=== PATIENT | male | born 1960 | race Caucasian/White ===

== ENCOUNTER 2020-04-19 06:59 | Inpatient (IN) | payer OTHER ==
[2020-04-19] MEDS ORDERED: NITROGLYCERIN OINT 1 INCH/GM PACKET TOPICAL STA (07:16)
--- NOTE | 2020-04-19 07:25 | ED ---
General Adult HPI - General Chief complaint: Chest Pain Stated complaint: Chest Pain, SOB Time Seen by Provider: 04/19/20 07:00 Source: patient, RN notes reviewed, old records reviewed Mode of arrival: wheelchair Limitations: no limitations - History of Present Illness Initial comments: This is a 59-year-old male who presents emergency Department with a past medical history significant for smoking. Patient states he doesn't have a doctor so he hasn't been diagnosed with diabetes hypertension high cholesterol. Patient denies any family history and knowledge because he was adopted. Patient states on Sunday and Sunday had quite a bit of heaviness in his chest. Patient states he had a couple episodes of sweating and some shortness of breath. Patient states Sunday took an aspirin seemed to improve everything however he woke up this morning very short of breath and continue to have some chest pain. Patient denies any fever chills or cough. Patient denies any palpitations. Patient denies any long trips or travel. Patient denies any calf tenderness or leg swelling. Patient denies lightheadedness or dizziness. Patient denies any abdominal pain patient denies nausea vomiting diarrhea. - Related Data Home Medications Medication Instructions Recorded Confirmed Aspirin 325 mg PO ONCE PRN 04/19/20 04/19/20 Allergies Allergy/AdvReac Type Severity Reaction Status Date / Time No Known Allergies Allergy Verified 04/19/20 08:03 Review of Systems ROS Statement: Those systems with pertinent positive or pertinent negative responses have been documented in the HPI. ROS Other: All systems not noted in ROS Statement are negative. Past Medical History Past Medical History: No Reported History History of Any Multi-Drug Resistant Organisms: None Reported Past Surgical History: No Surgical Hx Reported Past Psychological History: No Psychological Hx Reported Smoking Status: Current every day smoker Past Alcohol Use History: Occasional Past Drug Use History: Marijuana General Exam - General Exam Comments Initial Comments: GENERAL: Patient is well-developed and well-nourished. Patient is nontoxic and well- hydrated and is in mild distress. ENT: Neck is soft and supple. No significant lymphadenopathy is noted. Oropharynx is clear. Moist mucous membranes. Neck has full range of motion without eliciting any pain. EYES: The sclera were anicteric and conjunctiva were pink and moist. Extraocular movements were intact and pupils were equal round and reactive to light. Eyelids were unremarkable. PULMONARY: Unlabored respirations. Good breath sounds bilaterally. No audible rales rhonchi or wheezing was noted. CARDIOVASCULAR: There is a regular rate and rhythm without any murmurs gallops or rubs. ABDOMEN: Soft and nontender with normal bowel sounds. SKIN: Skin is clear with no lesions or rashes and otherwise unremarkable. NEUROLOGIC: Patient is alert and oriented x3. Cranial nerves II through XII are grossly intact. Motor and sensory are also intact. Normal speech, volume and content. Symmetrical smile. MUSCULOSKELETAL: Normal extremities with adequate strength and full range of motion. No lower extremity swelling or edema. No calf tenderness. LYMPHATICS: No significant lymphadenopathy is noted PSYCHIATRIC: Normal psychiatric evaluation. Limitations: no limitations Course Vital Signs 04/19/20 04/19/20 04/19/20 07:02 07:04 07:41 Temperature 97.6 F Pulse Rate 121 H 101 H Pulse Rate [ 101 H [employer] Water ] Respiratory 22 20 Rate Blood Pressure 125/70 117/79 O2 Sat by Pulse 95 95 Oximetry 04/19/20 04/19/20 04/19/20 08:02 08:49 09:00 Temperature Pulse Rate 98 103 H 96 Pulse Rate [ [employer] ] Respiratory 20 20 18 Rate Blood Pressure 119/74 119/78 111/74 O2 Sat by Pulse 95 94 L 94 L Oximetry 04/19/20 09:55 Temperature Pulse Rate 95 Pulse Rate [ [employer] ] Respiratory 18 Rate Blood Pressure O2 Sat by Pulse 93 L Oximetry Medical Decision Making - Medical Decision Making EKG shows sinus tachycardia at 119 bpm VA interval 222 QRS is 82 QT interval 328 QTC is 461. Patient has Q waves in leads 3 and aVF. Patient continued to have pain even after Nitropaste so EKG was repeated and it showed a normal sinus rhythm at 97 bpm VA interval 132 QRS is 78 QT interval 346 QTC is 439. Patient's EKG shows Q waves in leads 3 and aVF as well is very subtle ST segment elevation in 3 and aVF. Chest x-ray shows no acute abnormality. CT of the chest showed no PE. Troponin was elevated this along with the patient's symptoms and minimal eleva tion in the inferior leads as well as Q waves in the inferior leads leading me to believe the patient had an MT. I spoke with Dr. Ventura he agreed to come down and see the patient emergency department. I started the patient on heparin and nitro drip. I spoke with some physicians and they agreed to admit the patient admitted the patient wrote admitting orders. - Lab Data Result diagrams: 04/19/20 07:35 04/19/20 07:35 Lab Results 04/19/20 04/19/20 04/19/20 Range/Units 07:35 07:35 07:35 WBC 15.3 H (3.8-10.6) k/uL RBC 5.04 (4.30-5.90) m/uL Hgb 15.8 (13.0-17.5) gm/dL Hct 49.1 (39.0-53.0) % MCV 97.3 (80.0-100.0) fL MCH 31.3 (25.0-35.0) pg MCHC 32.1 (31.0-37.0) g/dL RDW 13.7 (11.5-15.5) % Plt Count 233 (150-450) k/uL Neutrophils % 75 % Lymphocytes % 15 % Monocytes % 7 % Eosinophils % 2 % Basophils % 1 % Neutrophils # 11.4 H (1.3-7.7) k/uL Lymphocytes # 2.2 (1.0-4.8) k/uL Monocytes # 1.1 H (0-1.0) k/uL Eosinophils # 0.2 (0-0.7) k/uL Basophils # 0.1 (0-0.2) k/uL PT 9.6 (9.0-12.0) sec INR 0.9 (<1.2) APTT 22.3 (22.0-30.0) sec D-Dimer 1.04 H (<0.60) mg/L FEU Sodium 135 L (137-145) mmol/L Potassium 4.2 (3.5-5.1) mmol/L Chloride 103 (98-107) mmol/L Carbon Dioxide 23 (22-30) mmol/L Anion Gap 9 mmol/L BUN 22 H (9-20) mg/dL Creatinine 0.84 (0.66-1.25) mg/dL Est GFR (CKD-EPI)AfAm >90 (>60 ml/min/1.73 sqM) Est GFR (CKD-EPI)NonAf >90 (>60 ml/min/1.73 sqM) Glucose 186 H (74-99) mg/dL Calcium 8.8 (8.4-10.2) mg/dL Magnesium 2.0 (1.6-2.3) mg/dL Total Bilirubin 1.2 (0.2-1.3) mg/dL AST 177 H (17-59) U/L ALT 77 H (4-49) U/L Alkaline Phosphatase 86 (38-126) U/L Troponin I (0.000-0.034) ng/mL NT-Pro-B Natriuret Pep pg/mL Total Protein 7.3 (6.3-8.2) g/dL Albumin 4.2 (3.5-5.0) g/dL 04/19/20 04/19/20 Range/Units 07:35 07:35 WBC (3.8-10.6) k/uL RBC (4.30-5.90) m/uL Hgb (13.0-17.5) gm/dL Hct (39.0-53.0) % MCV (80.0-100.0) fL MCH (25.0-35.0) pg MCHC (31.0-37.0) g/dL RDW (11.5-15.5) % Plt Count (150-450) k/uL Neutrophils % % Lymphocytes % % Monocytes % % Eosinophils % % Basophils % % Neutrophils # (1.3-7.7) k/uL Lymphocytes # (1.0-4.8) k/uL Monocytes # (0-1.0) k/uL Eosinophils # (0-0.7) k/uL Basophils # (0-0.2) k/uL PT (9.0-12.0) sec INR (<1.2) APTT (22.0-30.0) sec D-Dimer (<0.60) mg/L FEU Sodium (137-145) mmol/L Potassium (3.5-5.1) mmol/L Chloride (98-107) mmol/L Carbon Dioxide (22-30) mmol/L Anion Gap mmol/L BUN (9-20) mg/dL Creatinine (0.66-1.25) mg/dL Est GFR (CKD-EPI)AfAm (>60 ml/min/1.73 sqM) Est GFR (CKD-EPI)NonAf (>60 ml/min/1.73 sqM) Glucose (74-99) mg/dL Calcium (8.4-10.2) mg/dL Magnesium (1.6-2.3) mg/dL Total Bilirubin (0.2-1.3) mg/dL AST (17-59) U/L ALT (4-49) U/L Alkaline Phosphatase (38-126) U/L Troponin I 19.200 H* (0.000-0.034) ng/mL NT-Pro-B Natriuret Pep 3270 pg/mL Total Protein (6.3-8.2) g/dL Albumin (3.5-5.0) g/dL Critical Care Time Critical Care Time: Yes Total Critical Care Time: 35 Disposition Clinical Impression: Myocardial infarction Disposition: ADMITTED IP TO THIS HOSP Referrals: None,Stated [Primary Care Provider] - 1-2 days Time of Disposition: 09:22
[2020-04-19 07:54] LABS: Basophils # (A) 0.1 k/uL (0-0.2); Basophils % (A) 1 %; Eosinophils # (A) 0.2 k/uL (0-0.7); Eosinophils % (A) 2 %; HCT 49.1 % (39.0-53.0); HGB 15.8 gm/dL (13.0-17.5); Lymphocytes # (A) 2.2 k/uL (1.0-4.8); Lymphocytes % (A) 15 %; MCH 31.3 pg (25.0-35.0); MCHC 32.1 g/dL (31.0-37.0); MCV 97.3 fL (80.0-100.0); Mean Platelet Volume 7.7; Monocytes # (A) 1.1 k/uL (0-1.0); Monocytes % (A) 7 %; Neutrophils # (A) 11.4 k/uL (1.3-7.7); Neutrophils % (A) 75 %; Platelet Count 233 k/uL (150-450); RBC 5.04 m/uL (4.30-5.90); RDW 13.7 % (11.5-15.5); WBC 15.3 k/uL (3.8-10.6)
[2020-04-19 08:08] LABS: INR 0.9 (<1.2); Partial Thromboplastin Time 22.3 sec (22.0-30.0); Prothrombin Time 9.6 sec (9.0-12.0)
[2020-04-19 08:18] LABS: ALT 77 U/L (4-49); AST 177 U/L (17-59); African American GFR (CKD) >90 (>60 ml/min/1.73 sqM); Albumin 4.2 g/dL (3.5-5.0); Alkaline Phosphatase 86 U/L (38-126); Anion Gap 9 mmol/L; Blood Urea Nitrogen 22 mg/dL (9-20); Calcium 8.8 mg/dL (8.4-10.2); Carbon Dioxide 23 mmol/L (22-30); Chloride 103 mmol/L (98-107); Glucose 186 mg/dL (74-99); Non-African American GFR(CKD) >90 (>60 ml/min/1.73 sqM); Potassium 4.2 mmol/L (3.5-5.1); Sodium 135 mmol/L (137-145); Total Bilirubin 1.2 mg/dL (0.2-1.3); Total Protein 7.3 g/dL (6.3-8.2)
--- NOTE | 2020-04-19 08:18 | XR ---
EXAMINATION TYPE: XR chest 2V DATE OF EXAM: 04/19/2020 COMPARISON: NONE HISTORY: Shortness of breath TECHNIQUE: Frontal and lateral views of the chest are obtained. FINDINGS: Scattered senescent parenchymal changes noted. Hyperinflation compatible with COPD. No evidence for infiltrate. Curvilinear parenchymal scarring or atelectasis left lateral lung base. Heart size is stable. Mediastinal structures are stable and grossly unremarkable. No evidence for hilar prominence. Degenerative changes dorsal spine. IMPRESSION: 1. No evidence for acute pulmonary disease.
[2020-04-19 08:20] LABS: D-Dimer 1.04 mg/L FEU (<0.60)
[2020-04-19] MEDS ORDERED: NITROGLYCERIN SL TABS 0.4 MG TAB SUBLINGUAL STA (08:45)
--- NOTE | 2020-04-19 08:55 | CT ---
EXAMINATION TYPE: CT chest angio for PE DATE OF EXAM: 04/19/2020 COMPARISON: HISTORY: Elevated d dimer CT DLP: 521.2 mGycm Automated exposure control for dose reduction was used. CONTRAST: CT Chest for pulmonary embolism performed with with IV Contrast, patient injected with 100 mL of Isov ue 370. FINDINGS: LUNGS: The lungs are remarkable for some dependent atelectatic changes, there is no concerning parenc hymal mass or nodule identified. There are scattered emphysematous changes. Some basilar scarring or atelectatic change present within the lingula is noted There is no pleural effusion or pneumothorax seen. The tracheobronchial tree is patent. MEDIASTINUM: There is satisfactory enhancement of the pulmonary artery and its branches, there is no CT evidence for pulmonary embolism. There are no greater than 1 cm hilar or mediastinal lymph nodes. Minimal pericardial effusion is seen. AORTA: No additional significant abnormality is seen. OTHER: Low dense focus present within the left lobe of the liver measures 2.2 cm and likely represen ts cyst IMPRESSION: No evident pulmonary embolism.
[2020-04-19] MEDS ORDERED: HEPARIN SODIUM,PORCINE 5,000 UNIT/ML 1 ML VIAL IV ONE (08:59)
[2020-04-19] MEDS ORDERED: HEPARIN SOD,PORK IN 0.45% NACL 25,000 UNIT in 0.45% NACL 1 250ML.BAG IV SCH (09:00)
[2020-04-19] MEDS ORDERED: NITROGLYCERIN-D5W PMX 50 MG in DEXTROSE/WATER 1 250ML.BAG IV ONE (09:02)
[2020-04-19] MEDS ORDERED: SODIUM CHLORIDE 0.9% 500 ML 500 ML IV STA (09:03)
[2020-04-19] MEDS ORDERED: HYDROmorphone 0.5 MG/0.5 ML SYRINGE IVP STA (09:32)
[2020-04-19] MEDS ORDERED: FUROSEMIDE 10 MG/ML 2 ML VIAL IV STA (09:33)
--- NOTE | 2020-04-19 09:41 | P.CRDCN ---
History of Present Illness Consult date: 04/19/20 History of present illness: This is a 59-year-old gentleman with a no Sigmund past medical history who has been having and burning and heavy chest discomfort since Sunday. Because of the pain was heavy as if an elephant was sitting on his chest and was continuous. Patient came around 7:00 this morning to the ER. He claims that he is having difficulty breathing and seemed to have some orthopnea and also continues to have some tests chest discomfort. It seemed to have some pleuritic component. It could be related to possible pericarditis. His EKG however shows evidence of Q waves in inferior leads with ST T changes suggestive of subacute inferior wall RI. His troponin is 19. Patient is treated with IV nitroglycerin, Dilaudid, heparin and also IV Lasix. Clinically his lungs appeared to be clear. Chest x- ray did not reveal any evidence of CHF. Patient is advised to have a cardiac catheterization for definitive diagnosis. Patient is going to have ech ocardiogram. Further recommendations will depend upon the clinical course. Prognosis is guarded Review of Systems As per the chart Past Medical History Past Medical History: No Reported History History of Any Multi-Drug Resistant Organisms: None Reported Past Surgical History: No Surgical Hx Reported Past Psychological History: No Psychological Hx Reported Smoking Status: Current every day smoker Past Alcohol Use History: Occasional Past Drug Use History: Marijuana Medications and Allergies Home Medications Medication Instructions Recorded Confirmed Type Aspirin 325 mg PO ONCE PRN 04/19/20 04/19/20 History Allergies Allergy/AdvReac Type Severity Reaction Status Date / Time No Known Allergies Allergy Verified 04/19/20 08:03 Physical Exam Vitals: Vital Signs Temp Pulse Pulse Resp BP Pulse Ox 04/19/20 08:49 103 H 20 119/78 94 L 04/19/20 08:02 98 20 119/74 95 04/19/20 07:41 101 H 04/19/20 07:04 101 H 20 117/79 95 04/19/20 07:02 97.6 F 121 H 22 125/70 95 Intake and Output 04/18/20 04/19/20 04/19/20 22:59 06:59 14:59 Other: Weight 106.594 kg GENERAL EXAM: Patient is alert and oriented and doesn't appear to be in any acute distress HEENT: Normocephalic. Normal reaction of pupils, equal size, normal range of extraocular motion. No erythema or exudates in the throat. NECK: No masses, no nuchal rigidity. CHEST: No chest wall deformity. LUNGS: Equal air entry with no crackles or wheeze. HEART: S1 and S2 normal with no audible mumurs or gallops. Regular rhythm, femorals equal on both sides.. ABDOMEN: No hepatosplenomegaly, normal bowel sounds, no guarding or rigidity. SKIN: No rashes CENTRAL NERVOUS SYSTEM: No focal deficits. EXTREMITIES: No cyanosis, clubbing or edema. Results 04/19/20 07:35 04/19/20 07:35 Cardiac Enzymes 04/19/20 04/19/20 Range/Units 07:35 07:35 AST 177 H (17-59) U/L Troponin I 19.200 H* (0.000-0.034) ng/mL Coagulation 04/19/20 Range/Units 07:35 PT 9.6 (9.0-12.0) sec APTT 22.3 (22.0-30.0) sec CBC 04/19/20 Range/Units 07:35 WBC 15.3 H (3.8-10.6) k/uL RBC 5.04 (4.30-5.90) m/uL Hgb 15.8 (13.0-17.5) gm/dL Hct 49.1 (39.0-53.0) % Plt Count 233 (150-450) k/uL Comprehensive Metabolic Panel 04/19/20 Range/Units 07:35 Sodium 135 L (137-145) mmol/L Potassium 4.2 (3.5-5.1) mmol/L Chloride 103 (98-107) mmol/L Carbon Dioxide 23 (22-30) mmol/L BUN 22 H (9-20) mg/dL Creatinine 0.84 (0.66-1.25) mg/dL Glucose 186 H (74-99) mg/dL Calcium 8.8 (8.4-10.2) mg/dL AST 177 H (17-59) U/L ALT 77 H (4-49) U/L Alkaline Phosphatase 86 (38-126) U/L Total Protein 7.3 (6.3-8.2) g/dL Albumin 4.2 (3.5-5.0) g/dL Current Medications Generic Name Dose Route Start Last Admin Trade Name Freq PRN Reason Stop Dose Admin Heparin Sodium/Sodium Chloride 250 mls @ 10 mls/hr 04/19/20 09:00 04/19/20 09:23 25,000 unit/ Sodium Chloride IV 9.381 units/kg/hr .Q24H LIZETH 10 mls/hr Administration Protocol 9.381 UNITS/KG/HR Nitroglycerin/Dextrose 50 mg/ 250 mls @ 1.5 mls/hr 04/19/20 09:02 04/19/20 09:31 IV Solution IV 04/20/20 09:01 5 mcg/min .Q24H ONE 1.5 mls/hr Administration Protocol 5 MCG/MIN Intake and Output 04/18/20 04/19/20 04/19/20 22:59 06:59 14:59 Other: Weight 106.594 kg Patient Weight 04/20/20 06:59 Weight 106.594 kg 04/19/20 07:35 04/19/20 07:35 EKG Interpretations (text) Sinus rhythm with evidence of subacute inferior wall RI Assessment and Plan (1) Myocardial infarction, inferior wall Current Visit: Yes Status: Acute Code(s): I21.19 - STEMI INVOLVING OTH CORONARY ARTERY OF INFERIOR WALL SNOMED Code(s): 33758169 (2) Pericarditis Current Visit: Yes Status: Acute Code(s): I31.9 - DISEASE OF PERICARDIUM, UNSPECIFIED SNOMED Code(s): 2958944 Plan: Patient had an RI probably started on Sunday. Still having some chest pain, Some of it is pleuritic in nature, suggestive of possible pericarditis. We will get an echocardiogram. Continue with beta blockers, nitrates, lipid-lowering agents, aspirin and heparin. Further recommendations depend upon the findings on the cath
[2020-04-19] MEDS ORDERED: ATORVASTATIN 80 MG TAB PO STA (09:44)
[2020-04-19] MEDS ORDERED: ALPRAZolam 0.25 MG TAB PO PRN (09:44)
[2020-04-19] MEDS ORDERED: ASPIRIN 325 MG TAB PO STA (09:44)
[2020-04-19] MEDS ORDERED: NITROGLYCERIN SL TABS 0.4 MG TAB SUBLINGUAL PRN (09:44)
[2020-04-19] MEDS ORDERED: ALPRAZolam 0.5 MG TAB PO PRN (09:44)
[2020-04-19] MEDS ORDERED: IV FLUID CONTINUATION 400 ML IV ONE (10:35)
[2020-04-19] MEDS ORDERED: IV FLUID CONTINUATION 1,000 ML IV ONE (10:36)
[2020-04-19] MEDS ORDERED: fentaNYL (PF) 50 MCG/ML 2 ML AMP IVP ONE (10:41)
[2020-04-19] MEDS ORDERED: MIDAZOLAM 2 MG/2 ML VIAL IVP ONE (10:41)
[2020-04-19] MEDS ORDERED: LIDOCAINE 1% INJ 10MG/ML (20 ML MDV) SQ ONE (10:44)
[2020-04-19] MEDS ORDERED: VERAPAMIL SYRINGE (5 MG/10 ML) INTRAARTER ONE (10:46)
--- NOTE | 2020-04-19 11:08 | P.CARDCATH ---
Date of Procedure: 04/19/20 Preoperative Diagnosis: Subacute inferior wall OK with ongoing chest pains Postoperative Diagnosis: Total occlusion of the proximal RCA Procedure(s) Performed: Left heart catheterization without left ventriculography Description of Procedure: HISTORY: This is a 59-year-old gentleman with history of smoking and no other past medical history, came to the emergency room with complaints of chest pain since Sunday, that is 3 days prior to admission. Patient was still having chest pains. His EKG showed evidence of subacute inferior wall OK with resolving ST elevations. Echocardiogram showed almost normal LV function. His troponin value was 19. Patient was advised to have a are catheterization for definite diagnosis. CONSENT:I have discussed the risks, benefits and alternative therapies for the above-mentioned procedure and for both sedation/analgesia as well as necessary blood product administration, if indicated, as they pertain to this patient. The patient has indicated understanding and acceptance of the risks and procedures discussed. PROCEDURE: Patient was brought to the lab in a fasting state. Patient was given some IV sedation. The right wrist is infiltrated with lidocaine and right radial artery was entered using Seldinger technique. A 6-Yoruba catheter was left in place and selective coronary arteriography was performed. Patient tolerated the procedure well. Patient is found to have total occlusion of the RCA. Waiting to have stent placement by Dr. JANEL Scherer Conscious Sedation: Versed 1mg Fentanyl 25 g Duration 17minutes HEMODYNAMICS: The aortic pressure is 138/90. The left ventricular end-diastolic pressure is not measured SELECTIVE CORONARY ARTERIOGRAPHY: LEFT MAIN: Normal length free of occlusive disease THE LEFT ANTERIOR DESCENDING CORONARY ARTERY:. Good caliber vessel. Free of any significant occlusive disease THE LEFT CIRCUMFLEX AND IS CORONARY ARTERY:. Good caliber vessel. Free of occlusive disease THE RIGHT CORONARY ARTERY: To be dominant vessel totally occluded in the proximal portion. There are collaterals from the left coronary to the distal RCA LEFT VENTRICULOGRAPHY: Not performed FINAL IMPRESSION:. Total occlusion of the proximal RCA PLAN: Stent placement of the RCA PROGNOSIS: Guarded
--- NOTE | 2020-04-19 11:08 | ECHOF ---
Referral Reason:Chest pain and cardiomyopathy MEASUREMENTS -------- HEIGHT: 190.5 cm WEIGHT: 104.3 kg BP: 90/57 RVIDd: 3.6 cm (< 3.3) IVSd: 1.6 cm (0.6 - 1.1) LVIDd: 4.5 cm (3.9 - 5.3) LVPWd: 1.6 cm (0.6 - 1.1) IVSs: 2.0 cm LVIDs: 3.2 cm LVPWs: 2.1 cm LA Diam: 3.7 cm (2.7 - 3.8) Ao Diam: 3.5 cm (2.0 - 3.7) MV EXCURSION: 15.618 mm (> 18.000) MV EF SLOPE: 32 mm/s (70 - 150) EPSS: 0.9 cm MV E Scott: 0.58 m/s MV DecT: 190 ms MV A Scott: 0.80 m/s MV E/A Ratio: 0.72 FINDINGS -------- Sinus rhythm. This was a technically difficult study with suboptimal views. The left ventricular size is normal. There is moderate concentric left ventricular hypertrophy. O verall left ventricular systolic function is normal with, an EF between 55 - 60 %. The right ventricle is mildly enlarged. The left atrial size is normal. The right atrial size is normal. Interatrial and interventricular septum intact. The aortic valve is trileaflet, and appears structurally normal. No aortic stenosis or regurgitation. The mitral valve leaflets are mildly thickened. There is trace to mild mitral regurgitation. The tricuspid valve appears structurally normal. The pulmonic valve was not well visualized. The aortic root size is normal. IVC Not well visulized. There is no pericardial effusion. CONCLUSIONS -------- 1. There is moderate concentric left ventricular hypertrophy. 2. Overall left ventricular systolic function is normal with, an EF between 55 - 60 %. 3. The right ventricle is mildly enlarged. 4. The left atrial size is normal. 5. The aortic valve is trileaflet, and appears structurally normal. No aortic stenosis or regurgitati on. 6. The mitral valve leaflets are mildly thickened. 7. There is trace to mild mitral regurgitation. 8. The pulmonic valve was not well visualized. 9. There is no pericardial effusion. POULTRY PICKING MACHINE TENDER: Emerita Nguyen RDCS
[2020-04-19] MEDS ORDERED: IOPAMIDOL-370 100ML BTL INJ ONE ×3 (11:38→13:30)
[2020-04-19] MEDS ORDERED: HEPARIN SODIUM 1,000 UN/ML (10ML VL) IV ONE (11:56)
[2020-04-19] MEDS ORDERED: NOREPINEPHRINE 4 MG in SODIUM CHLORIDE 0.9% 250 ML IV ONE (12:01)
[2020-04-19] MEDS ORDERED: HYDROmorphone 1 MG/ML 1 ML SYRINGE IVP ONE ×2 (12:04→12:07)
[2020-04-19] MEDS ORDERED: NITROGLYCERIN SL TABS 0.4 MG TAB SUBLINGUAL ONE (12:08)
[2020-04-19] MEDS ORDERED: NITROGLYCERIN 1000MCG/10ML SYRINGE INTRACORON ONE ×3 (12:45→13:10)
[2020-04-19] MEDS: HEPARIN SODIUM 1,000 UN/ML (10ML VL) IV ONE ×2 (13:03→13:21)
[2020-04-19] MEDS ORDERED: SODIUM CHLORIDE 0.9% 500 ML 500 ML IV ONE (13:09)
[2020-04-19] MEDS ORDERED: ATROPINE SULFATE 0.1 MG/ML 10ML SYRINGE IV PRN (13:26)
[2020-04-19] MEDS ORDERED: ZOLPIDEM 5 MG TAB PO PRN (13:26)
[2020-04-19] MEDS ORDERED: RX INFO: IV CONTRAST WAS GIVEN 1 EACH MISC MISCELLANE PRN (13:26)
[2020-04-19] MEDS ORDERED: MAG HYDROX/AL HYDROX/SIMETH 30 ML CUP PO PRN (13:26)
[2020-04-19] MEDS ORDERED: CLOPIDOGREL 75 MG TAB PO ONE (13:35)
[2020-04-19 14:17] LABS: Glucose,Whole Blood 168 mg/dL (75-99)
[2020-04-19] MEDS ORDERED: HYDROcodone/APAP 5-325MG 1 EACH TAB PO PRN (14:22)
--- NOTE | 2020-04-19 15:05 | P.HPIM ---
History of Present Illness H&P Date: 04/19/20 Chief Complaint: Chest pain This is a 59-year-old male with no significant past medical history who presented to the emergency room with a chief complaint of chest pain. Patient said that his pain started a few days ago and is being getting progressively worse. He described his pain as 10 out of 10 in severity and IV dye sensation in the middle of his chest and toward the left side. This was associated with difficulty breathing. Patient denies diaphoresis or dizziness. Patient was evaluated in the ER and was found to have evidence of a non-ST elevation [place] with nonspecific ST segment changes. Patient was seen and evaluated by cardiology and was taken to the heart cath status post left heart catheterization and stent placement to RCA. He still complaining of chest pain in the middle of his chest that he report is not any better compared to before. He received 1 dose of IV dye noted earlier that his blood pressure was borderline low. Review of Systems Review of system: 14 points review of systems were obtained and were negative except to what were mentioned in the HPI. Past Medical History Past Medical History: No Reported History History of Any Multi-Drug Resistant Organisms: None Reported Past Surgical History: No Surgical Hx Reported Past Anesthesia/Blood Transfusion Reactions: No Reported Reaction Past Psychological History: No Psychological Hx Reported Smoking Status: Current every day smoker Past Alcohol Use History: Occasional Past Drug Use History: Marijuana - Past Family History Mother History Unknown: Yes Father History Unknown: Yes Medications and Allergies Home Medications Medication Instructions Recorded Confirmed Type Aspirin 325 mg PO ONCE PRN 04/19/20 04/19/20 History Allergies Allergy/AdvReac Type Severity Reaction Status Date / Time No Known Allergies Allergy Verified 04/19/20 08:03 Physical Exam Vitals: Vital Signs Temp Pulse Pulse Resp BP BP Pulse Ox 04/19/20 13:54 72 18 117/66 96 04/19/20 13:42 80 18 114/60 94 L 04/19/20 10:08 93 18 119/82 94 L 04/19/20 10:05 96 18 119/82 93 L 04/19/20 09:55 95 18 93 L 04/19/20 09:00 96 18 111/74 94 L 04/19/20 08:49 103 H 20 119/78 94 L 04/19/20 08:02 98 20 119/74 95 04/19/20 07:41 101 H 04/19/20 07:04 101 H 20 117/79 95 04/19/20 07:02 97.6 F 121 H 22 125/70 95 Intake and Output 04/18/20 04/19/20 04/19/20 22:59 06:59 14:59 Intake Total 410.5 Output Total 625 Balance -214.5 Intake: IV 410.5 Output: Urine 625 Other: Weight 106.594 kg General: The patient is awake and alert, in no distress Eye: there is normal conjunctiva bilaterally. Neck: The neck is supple, there is no JVD. Cardiovascular: Normal S1-S2, no S3-S4, no murmurs. Respiratory: Lungs clear to auscultation bilaterally Gastrointestinal: Abdomen is soft, nontender Musculoskeletal: There is no pedal edema. Neurological:. Speech is normal. Skin: Skin is warm and dry Results CBC & Chem 7: 04/19/20 07:35 04/19/20 07:35 Labs: Abnormal Lab Results - Last 24 Hours (Table) 04/19/20 04/19/20 04/19/20 Range/Units 07:35 07:35 07:35 WBC 15.3 H (3.8-10.6) k/uL Neutrophils # 11.4 H (1.3-7.7) k/uL Monocytes # 1.1 H (0-1.0) k/uL D-Dimer 1.04 H (<0.60) mg/L FEU Sodium 135 L (137-145) mmol/L BUN 22 H (9-20) mg/dL Glucose 186 H (74-99) mg/dL POC Glucose (mg/dL) (75-99) mg/dL AST 177 H (17-59) U/L ALT 77 H (4-49) U/L Troponin I (0.000-0.034) ng/mL 04/19/20 04/19/20 Range/Units 07:35 14:15 WBC (3.8-10.6) k/uL Neutrophils # (1.3-7.7) k/uL Monocytes # (0-1.0) k/uL D-Dimer (<0.60) mg/L FEU Sodium (137-145) mmol/L BUN (9-20) mg/dL Glucose (74-99) mg/dL POC Glucose (mg/dL) 168 H (75-99) mg/dL AST (17-59) U/L ALT (4-49) U/L Troponin I 19.200 H* (0.000-0.034) ng/mL Thrombosis Risk Factor Assmnt - Choose All That Apply Each Factor Represents 1 point: Acute [place], Age 41-60 years, Medical pt on bed rest Other Risk Factors: No Other congenital or acquired thrombophilia - If yes, enter type in comment: No Thrombosis Risk Factor Assessment Total Risk Factor Score: 3 Thrombosis Risk Factor Assessment Level: Moderate Risk Assessment and Plan Assessment: 1. Non-ST elevation [place], status post left heart catheterization total occlusion of proximal RCA. Status post stent placement. Continue medical management per cardiology. Echocardiogram showed preserved ejection fraction 55% 2. Tobacco abuse: Counseled extensively to quit. Patient declined nicotine patch at this time. 3. Hyperlipidemia: Awaiting fasting lipid profile in the morning 4. DVT prophylaxis with subcu heparin
[2020-04-19] MEDS: MORPHINE SULFATE 2 MG/ML SYRINGE IVP PRN ×2 (15:31→23:24)
[2020-04-19] MEDS: METOPROLOL TARTRATE 12.5 MG TAB PO SCH (20:21)
[2020-04-19] MEDS: ASPIRIN 81 MG PO SCH (20:21)
[2020-04-19] MEDS: ATORVASTATIN 80 MG TAB PO SCH (20:21)
[2020-04-19] MEDS: HEPARIN SODIUM,PORCINE 5,000 UNIT/ML 1 ML VIAL SQ SCH (23:24)
--- NOTE | 2020-04-20 01:44 | PTCA ---
PERCUTANEOUSTRANS CORORONARY ANGIOGRAPHY DATE OF SERVICE: 04/19/2020. PROCEDURE: PTCA of a totally occluded proximal RCA immediately after a conus branch. PERFORMED BY: Dr. Ezequiel Scherer. Moderate conscious sedation time was 119 minutes. Patient was administered Versed, Dilaudid. Oxygen saturation, hemodynamics and EKG were monitored closely. CLINICAL INFORMATION: Mr. Joaquin Graf is a gentleman who was seen by Dr. Ventura, admitted to the hospital with chest pain and had a troponin elevation. It appears that this pain started 72 hours ago. There was troponin elevation and there seems to be a subacute myocardial infarction. Cardiac cath revealed that RCA was totally occluded with collaterals for the left system. No significant disease in other vessels. He was advised intervention, but on looking at the angiogram, I felt that this may be a chronic total occlusion with some distal branches having been occluded recently. I discussed this with the patient, explained him the success rate is low and began the procedure. PROCEDURE NOTE: The patient had the radial sheath and I used the same sheath. A standard right Nancy guide catheter of 6-Danish caliber was used to cannulate the right coronary artery. I used a combination initially of a straight SuperCross wire and a run-through wire. I did not make much progress. I switched over to a 45-degree angle SuperCross and a Whisper wire straight with this combination I crossed the total occlusion, advanced it almost to the distal aspect of the RCA before bifurcation. I gave multiple inflations initially with a 2.0 and then a 2.5 and subsequently with a 3.0 vessel. The vessel opened up with a CODY 2 flow which was quite encouraging after multiple inflations. I then deployed a 3.0 caliber 18 mm long Xience stent and after this there seemed to be a significant thrombus burden and the vessel was occluded. ACT was over 300 after giving about 4000 additional units of heparin. Patient already received 4000 in the ER. However, subsequently ACT came down and additional heparin was given. Patient received 600 mg of Plavix. At the end of the procedure, I did not see much antegrade flow and this was therefore unsuccessful procedure, one stent was deployed. Unfortunately, I did not get much antegrade flow. I discussed this with the patient. He was pain free, hemodynamically stable. There was transient hypotension. I performed an echocardiogram on the table and there was no evidence of any pericardial effusion. The patient was sent to the ICU in a stable condition with the understanding that this was unsuccessful PTCA of a chronic total occlusion. There was no family members to explain or discuss the details with. BRITT / ELIZABET: [id number] / MTDCurly
[2020-04-20 05:17] LABS: Basophils # (A) 0.1 k/uL (0-0.2); Basophils % (A) 0 %; Eosinophils # (A) 0.2 k/uL (0-0.7); Eosinophils % (A) 2 %; HCT 42.1 % (39.0-53.0); HGB 13.9 gm/dL (13.0-17.5); Lymphocytes # (A) 1.9 k/uL (1.0-4.8); Lymphocytes % (A) 13 %; MCH 32.3 pg (25.0-35.0); MCHC 32.9 g/dL (31.0-37.0); MCV 98.2 fL (80.0-100.0); Mean Platelet Volume 7.7; Monocytes # (A) 1.1 k/uL (0-1.0); Monocytes % (A) 7 %; Neutrophils # (A) 11.4 k/uL (1.3-7.7); Neutrophils % (A) 77 %; Platelet Count 216 k/uL (150-450); RBC 4.29 m/uL (4.30-5.90); RDW 13.7 % (11.5-15.5); WBC 14.8 k/uL (3.8-10.6)
[2020-04-20 05:24] LABS: ALT 62 U/L (4-49); AST 110 U/L (17-59); African American GFR (CKD) >90 (>60 ml/min/1.73 sqM); Albumin 3.3 g/dL (3.5-5.0); Alkaline Phosphatase 74 U/L (38-126); Anion Gap 6 mmol/L; Blood Urea Nitrogen 18 mg/dL (9-20); Calcium 8.2 mg/dL (8.4-10.2); Carbon Dioxide 23 mmol/L (22-30); Chloride 102 mmol/L (98-107); Cholesterol 189 mg/dL (<200); Glucose 136 mg/dL (74-99); HDL Cholesterol 37 mg/dL (40-60); LDL Cholesterol,Calculated 128 mg/dL (0-99); Non-African American GFR(CKD) >90 (>60 ml/min/1.73 sqM); Sodium 131 mmol/L (137-145); Total Bilirubin 1.7 mg/dL (0.2-1.3); Triglycerides 120 mg/dL (<150)
[2020-04-20] MEDS: CLOPIDOGREL 75 MG TAB PO SCH (08:55)
[2020-04-20] MEDS: METOPROLOL TARTRATE 12.5 MG TAB PO SCH (08:56)
[2020-04-20] MEDS: HEPARIN SODIUM,PORCINE 5,000 UNIT/ML 1 ML VIAL SQ SCH ×2 (08:56→21:47)
[2020-04-20] MEDS ORDERED: ASPIRIN 325 MG TAB PO SCH (09:00)
[2020-04-20 10:31] VITALS: BMI 31.1
--- NOTE | 2020-04-20 13:26 | ECHOF ---
Referral Reason:R/O Pericardial effusion MEASUREMENTS -------- HEIGHT: 182.9 cm WEIGHT: 113.4 kg BP: FINDINGS -------- Sinus rhythm. Echo Done 04/19/20: Limited study to r/o pericardial effusion. There is no pericardial effusion. CONCLUSIONS -------- 1. Sinus rhythm. 2. Echo Done 04/19/20: Limited study to r/o pericardial effusion. 3. There is no pericardial effusion. ELEVATOR ERECTOR: Cecily Brewer RDCS
--- NOTE | 2020-04-20 15:43 | P.PN ---
Subjective Progress Note Date: 04/20/20 This is a 59-year-old gentleman with history of smoking who was admitted to the hospital with subacute inferior wall myocardial infarction. Had a cardiac catheterization and was found to have total occlusion of the proximal RCA with collateral from the left system. Left system is free of occlusive disease. Attempted stent placement was unsuccessful. His troponin remained around 20. Patient is feeling much better. No Sigmund chest pain or shortness of breath. His chest x-ray never showed CHF. His blood pressure is about 100 210 systolic. Heart rate is about 80-90. He is on small dose of beta kenny. I'm going to increase the dose and see if he can tolerate. Lungs appeared to be clear. Heart is regular. Patient is being transferred to telemetry unit. Increase activity as tolerated Objective - Vital Signs Vital signs: Vital Signs Temp 98.4 F 04/20/20 12:00 Pulse 99 04/20/20 15:00 Resp 18 04/20/20 15:00 BP 109/68 04/20/20 15:00 Pulse Ox 95 04/20/20 15:00 Intake & Output 04/19/20 04/20/20 04/20/20 18:59 06:59 18:59 Intake Total 490.5 240 540 Output Total 625 1000 1000 Balance -134.5 -760 -460 Weight 106.594 kg 110.2 kg 110.2 kg Intake: IV 490.5 240 180 0.9 NS 80 240 180 Oral 360 Output: Urine 625 1000 1000 Other: Voiding Method Urinal Urinal - Exam GENERAL EXAM: Patient is alert and oriented and doesn't appear to be in any acute distress HEENT: Normocephalic. Normal reaction of pupils, equal size, normal range of extraocular motion. No erythema or exudates in the throat. NECK: No masses, no nuchal rigidity. CHEST: No chest wall deformity. LUNGS: Equal air entry with no crackles or wheeze. HEART: S1 and S2 normal with no audible mumurs or gallops. Regular rhythm, femorals equal on both sides.. ABDOMEN: No hepatosplenomegaly, normal bowel sounds, no guarding or rigidity. SKIN: No rashes CENTRAL NERVOUS SYSTEM: No focal deficits. EXTREMITIES: No cyanosis, clubbing or edema. - Labs CBC & Chem 7: 04/20/20 04:54 04/20/20 04:54 Labs: Abnormal Lab Results - Last 24 Hours (Table) 04/19/20 04/20/20 04/20/20 Range/Units 17:08 04:54 04:54 WBC 14.8 H (3.8-10.6) k/uL RBC 4.29 L (4.30-5.90) m/uL Neutrophils # 11.4 H (1.3-7.7) k/uL Monocytes # 1.1 H (0-1.0) k/uL Sodium 131 L (137-145) mmol/L Glucose 136 H (74-99) mg/dL Calcium 8.2 L (8.4-10.2) mg/dL Total Bilirubin 1.7 H (0.2-1.3) mg/dL AST 110 H (17-59) U/L ALT 62 H (4-49) U/L Troponin I 18.500 H* (0.000-0.034) ng/mL Total Protein 6.0 L (6.3-8.2) g/dL Albumin 3.3 L (3.5-5.0) g/dL LDL Cholesterol, Calc 128 H (0-99) mg/dL HDL Cholesterol 37 L (40-60) mg/dL 04/20/20 Range/Units 04:54 WBC (3.8-10.6) k/uL RBC (4.30-5.90) m/uL Neutrophils # (1.3-7.7) k/uL Monocytes # (0-1.0) k/uL Sodium (137-145) mmol/L Glucose (74-99) mg/dL Calcium (8.4-10.2) mg/dL Total Bilirubin (0.2-1.3) mg/dL AST (17-59) U/L ALT (4-49) U/L Troponin I 21.500 H* (0.000-0.034) ng/mL Total Protein (6.3-8.2) g/dL Albumin (3.5-5.0) g/dL LDL Cholesterol, Calc (0-99) mg/dL HDL Cholesterol (40-60) mg/dL Assessment and Plan (1) Myocardial infarction, inferior wall Current Visit: Yes Status: Acute Code(s): I21.19 - STEMI INVOLVING OTH CORONARY ARTERY OF INFERIOR WALL SNOMED Code(s): 39184270 (2) Pericarditis Current Visit: Yes Status: Acute Code(s): I31.9 - DISEASE OF PERICARDIUM, UNSPECIFIED SNOMED Code(s): 3701395 Plan: Status post subacute inferior wall SD. Patient is clinically stable. His troponin remained around 20. We'll increase the dose of the beta kenny. See if he can tolerate. Will get a chest x-ray and BNP levels tomorrow. Further recommendations depends upon the critical course
--- NOTE | 2020-04-20 16:22 | P.PN ---
Subjective Progress Note Date: 04/20/20 Patient is doing fairly well today. He denies any chest pain this morning. No acute events overnight. Objective - Vital Signs Vital signs: Vital Signs Temp 98.4 F 04/20/20 12:00 Pulse 99 04/20/20 15:00 Resp 18 04/20/20 15:00 BP 109/68 04/20/20 15:00 Pulse Ox 95 04/20/20 15:00 Intake & Output 04/19/20 04/20/20 04/20/20 18:59 06:59 18:59 Intake Total 490.5 240 540 Output Total 625 1000 1000 Balance -134.5 -760 -460 Weight 106.594 kg 110.2 kg 110.2 kg Intake: IV 490.5 240 180 0.9 NS 80 240 180 Oral 360 Output: Urine 625 1000 1000 Other: Voiding Method Urinal Urinal - Exam General: The patient is awake and alert, in no distress Eye: there is normal conjunctiva bilaterally. Neck: The neck is supple, there is no JVD. Cardiovascular: Normal S1-S2, no S3-S4, no murmurs. Respiratory: Lungs clear to auscultation bilaterally Gastrointestinal: Abdomen is soft, nontender Musculoskeletal: There is no pedal edema. Neurological:. Speech is normal. Skin: Skin is warm and dry - Labs CBC & Chem 7: 04/20/20 04:54 04/20/20 04:54 Labs: Abnormal Lab Results - Last 24 Hours (Table) 04/19/20 04/20/20 04/20/20 Range/Units 17:08 04:54 04:54 WBC 14.8 H (3.8-10.6) k/uL RBC 4.29 L (4.30-5.90) m/uL Neutrophils # 11.4 H (1.3-7.7) k/uL Monocytes # 1.1 H (0-1.0) k/uL Sodium 131 L (137-145) mmol/L Glucose 136 H (74-99) mg/dL Calcium 8.2 L (8.4-10.2) mg/dL Total Bilirubin 1.7 H (0.2-1.3) mg/dL AST 110 H (17-59) U/L ALT 62 H (4-49) U/L Troponin I 18.500 H* (0.000-0.034) ng/mL Total Protein 6.0 L (6.3-8.2) g/dL Albumin 3.3 L (3.5-5.0) g/dL LDL Cholesterol, Calc 128 H (0-99) mg/dL HDL Cholesterol 37 L (40-60) mg/dL 04/20/20 Range/Units 04:54 WBC (3.8-10.6) k/uL RBC (4.30-5.90) m/uL Neutrophils # (1.3-7.7) k/uL Monocytes # (0-1.0) k/uL Sodium (137-145) mmol/L Glucose (74-99) mg/dL Calcium (8.4-10.2) mg/dL Total Bilirubin (0.2-1.3) mg/dL AST (17-59) U/L ALT (4-49) U/L Troponin I 21.500 H* (0.000-0.034) ng/mL Total Protein (6.3-8.2) g/dL Albumin (3.5-5.0) g/dL LDL Cholesterol, Calc (0-99) mg/dL HDL Cholesterol (40-60) mg/dL Assessment and Plan Assessment: 1. Non-ST elevation ID, status post left heart catheterization total occlusion of proximal RCA. Successful stent placement attempt. Continue medical management per cardiology. Echocardiogram showed preserved ejection fraction 55% 2. Tobacco abuse: Counseled extensively to quit. Patient declined nicotine pat ch at this time. 3. Hyperlipidemia: LDL 128. Started on Lipitor 80 mg at bedtime 4. Mild transaminitis: Exact theology unclear. We will repeat lab work in the morning. If not trending down consider further workup including holding Lipitor and pain acute hepatitis panel 5. DVT prophylaxis with subcu heparin Awaiting further recommendation from cardiology. Possible discharge home tomorrow
[2020-04-20] MEDS: ASPIRIN 81 MG PO SCH (21:47)
[2020-04-20] MEDS: ATORVASTATIN 80 MG TAB PO SCH (21:48)
[2020-04-20] MEDS: METOPROLOL TARTRATE 25 MG TAB PO SCH (21:48)
[2020-04-21 05:05] LABS: Basophils # (A) 0.1 k/uL (0-0.2); Basophils % (A) 1 %; Eosinophils # (A) 0.4 k/uL (0-0.7); Eosinophils % (A) 4 %; HCT 39.2 % (39.0-53.0); HGB 12.5 gm/dL (13.0-17.5); Lymphocytes % (A) 16 %; MCH 31.3 pg (25.0-35.0); MCHC 31.8 g/dL (31.0-37.0); MCV 98.4 fL (80.0-100.0); Mean Platelet Volume 7.7; Monocytes # (A) 1.1 k/uL (0-1.0); Monocytes % (A) 9 %; Neutrophils # (A) 8.4 k/uL (1.3-7.7); Neutrophils % (A) 69 %; Platelet Count 191 k/uL (150-450); RBC 3.98 m/uL (4.30-5.90); RDW 13.7 % (11.5-15.5); WBC 12.2 k/uL (3.8-10.6)
[2020-04-21 05:36] LABS: ALT 83 U/L (4-49); AST 112 U/L (17-59); African American GFR (CKD) >90 (>60 ml/min/1.73 sqM); Alkaline Phosphatase 85 U/L (38-126); Anion Gap 8 mmol/L; Blood Urea Nitrogen 22 mg/dL (9-20); Calcium 8.4 mg/dL (8.4-10.2); Carbon Dioxide 22 mmol/L (22-30); Chloride 103 mmol/L (98-107); Glucose 116 mg/dL (74-99); Non-African American GFR(CKD) >90 (>60 ml/min/1.73 sqM); Sodium 133 mmol/L (137-145); Total Bilirubin 1.2 mg/dL (0.2-1.3); Total Protein 5.7 g/dL (6.3-8.2)
--- NOTE | 2020-04-21 07:29 | XR ---
EXAMINATION TYPE: XR chest 1V DATE OF EXAM: 04/21/2020 COMPARISON: Prior chest x-ray and CT 04/19/2020 HISTORY: Shortness of breath TECHNIQUE: Single frontal view of the chest is obtained. FINDINGS: Probable subsegmental basilar atelectatic changes persist. No evident pneumothorax or pleu ral effusion. Heart is stable. Aorta is dense. There are overlying cardiac leads. IMPRESSION: Probable subsegmental basilar atelectasis. Emphysema.
[2020-04-21] MEDS: METOPROLOL TARTRATE 25 MG TAB PO SCH (09:36)
[2020-04-21] MEDS: HEPARIN SODIUM,PORCINE 5,000 UNIT/ML 1 ML VIAL SQ SCH (09:36)
[2020-04-21] MEDS: CLOPIDOGREL 75 MG TAB PO SCH (09:36)
--- NOTE | 2020-04-21 14:27 | P.PN ---
Subjective Progress Note Date: 04/21/20 This is a 59-year-old gentleman with history of smoking who was admitted to the hospital with subacute inferior wall myocardial infarction. Had a cardiac catheterization and was found to have total occlusion of the proximal RCA with collateral from the left system. Left system is free of occlusive disease. Attempted stent placement was unsuccessful. His troponin remained around 20. Patient is feeling much better. No Sigmund chest pain or shortness of breath. His chest x-ray never showed CHF. His blood pressure is about 100 210 systolic. Heart rate is about 80-90. He is on small dose of beta kenny. I'm going to increase the dose and see if he can tolerate. Lungs appeared to be clear. Heart is regular. Patient is being transferred to telemetry unit. Increase activity as tolerated April 21, 2020: This patient remains stable. Denies any chest pain ,no shortness of breath. Chest x-ray is clear. Lungs are clear. Heart is regular. Heart rate is about 90. Blood pressure is about systolic. Patient's activity will be increased. Possible discharge hoem today.follow-up in the office in one week. Objective - Vital Signs Vital signs: Vital Signs Temp 97.9 F 04/21/20 12:00 Pulse 86 04/21/20 12:00 Resp 20 04/21/20 12:00 BP 103/69 04/21/20 12:00 Pulse Ox 93 L 04/21/20 12:00 Intake & Output 04/20/20 04/21/20 04/21/20 18:59 06:59 18:59 Intake Total 740 250 Output Total 1500 600 400 Balance -760 -600 -150 Weight 110.2 kg 108.6 kg Intake: IV 180 0 0.9 NS 180 0 Oral 560 250 Output: Urine 1500 600 400 Other: Voiding Method Urinal Urinal Urinal - Exam GENERAL EXAM: Patient is alert and oriented and doesn't appear to be in any acute distress HEENT: Normocephalic. Normal reaction of pupils, equal size, normal range of extraocular motion. No erythema or exudates in the throat. NECK: No masses, no nuchal rigidity. CHEST: No chest wall deformity. LUNGS: Equal air entry with no crackles or wheeze. HEART: S1 and S2 normal with no audible mumurs or gallops. Regular rhythm, femorals equal on both sides.. ABDOMEN: No hepatosplenomegaly, normal bowel sounds, no guarding or rigidity. SKIN: No rashes CENTRAL NERVOUS SYSTEM: No focal deficits. EXTREMITIES: No cyanosis, clubbing or edema. - Labs CBC & Chem 7: 04/21/20 04:43 04/21/20 04:43 Labs: Abnormal Lab Results - Last 24 Hours (Table) 04/21/20 04/21/20 Range/Units 04:43 04:43 WBC 12.2 H (3.8-10.6) k/uL RBC 3.98 L (4.30-5.90) m/uL Hgb 12.5 L (13.0-17.5) gm/dL Neutrophils # 8.4 H (1.3-7.7) k/uL Monocytes # 1.1 H (0-1.0) k/uL Sodium 133 L (137-145) mmol/L BUN 22 H (9-20) mg/dL Glucose 116 H (74-99) mg/dL AST 112 H (17-59) U/L ALT 83 H (4-49) U/L Total Protein 5.7 L (6.3-8.2) g/dL Albumin 3.0 L (3.5-5.0) g/dL Assessment and Plan (1) Myocardial infarction, inferior wall Current Visit: Yes Status: Acute Code(s): I21.19 - STEMI INVOLVING OTH CORONARY ARTERY OF INFERIOR WALL SNOMED Code(s): 70737965 (2) Pericarditis Current Visit: Yes Status: Acute Code(s): I31.9 - DISEASE OF PERICARDIUM, UNSPECIFIED SNOMED Code(s): 5615873 Plan: patient is clinically , stable. Continue current medical therapy. Possible discharge home today. Follow-up in the office in about one week
--- NOTE | 2020-04-21 14:52 | P.DS ---
Providers Date of admission: 04/19/20 10:04 Expected date of discharge: 04/21/20 Attending physician: Vahe Tomlin MD Consults: 04/19/20 10:04 Consult Physician Urgent Consulting Provider: Weston Ventura Consult Reason/Comments: [place] Do you want consulting provider notified?: Already Contacted 04/19/20 13:27 Consult Physician Routine Consulting Provider: [facility] Consult Reason/Comments: Post Interventional patient Do you want consulting provider notified?: Already Contacted Primary care physician: Stated None Hospital Course: Discharge Diagnosis: NSTEMI, sub acute inferior wall Tobacco abuse dyslipidemia Tranaminitis, improving Hospital Course: Patient is a 59-year-old male with no known past medical history who presented with a chief complaint of chest pain. In the ER he underwent an extensive evaluation. On arrival he was tachycardic with a heart rate of 121 his vital signs were otherwise within normal limits. Initial laboratory analysis 7 white blood cell count of 15.3, d-dimer mildly elevated at 1.04, sodium 135, AST 177, ALT 77, and a troponin of 19.2. Initial EKG showed nonspecific ST segment changes. CTA of the chest showed no evidence of pulmonary embolism. He was seen by cardiology. He underwent an echocardiogram which showed a preserved ejection fraction of 55%. He was taken for cardiac catheterization on 04/19 which showed complete occlusion of the right coronary artery. Stenting was attempted but was unsuccessful. It appeared that patient had collaterals from the left, and the left system was disease free. He was monitored and continued to do well. He had no chest pain throughout his hospital stay. He was initiated on Plavix, Lipitor, aspirin, and metoprolol. Of note patient does not have insurance. [facility] He will also have 90 days worth of medication filled at the pharmacy. He'll follow up with cardiology in 1 week. Patient had been up and ambulating in the unit without recurrent chest pain or shortness of breath. He has been counseled on the importance of tobacco cessation. Patient seen and examined at bedside. No chest pain, shortness breath, nausea, vomiting, or diaphoresis Vital signs reviewed and stable. General: non toxic, no distress, appears at stated age Derm: warm, dry Head: atraumatic, normocephalic, symmetric Eyes: EOMI, no lid lag, anicteric sclera Mouth: no lip lesion, mucus membranes moist Cardiovascular: S1S2 reg, no murmur, positive posterior tibial pulse bilateral, Lungs: CTA bilateral, no rhonchi, no rales , no accessory muscle use Abdominal: soft, nontender to palpation, no guarding, no appreciable organomegaly Ext: no gross muscle atrophy, no edema, no contractures Neuro: CN II-XI grossly intact, no focal neuro deficits Psych: Alert, oriented, appropriate affect A total of 35 minutes of time were spent preparing this complex discharge summary . Patient Condition at Discharge: Stable Plan - Discharge Summary Discharge Rx Participant: Yes New Discharge Prescriptions: New RX: Aspirin 81 mg PO HS #30 tab RX: Atorvastatin [Lipitor] 80 mg PO HS #30 tab RX: Metoprolol Tartrate [Lopressor] 25 mg PO BID #60 tab RX: Clopidogrel [Plavix] 75 mg PO DAILY #30 tab Discontinued RX: Aspirin 325 mg PO ONCE PRN PRN Reason: Chest Pain Discharge Medication List RX: Aspirin 81 mg PO HS #30 tab 04/21/20 [Rx] RX: Atorvastatin [Lipitor] 80 mg PO HS #30 tab 04/21/20 [Rx] RX: Clopidogrel [Plavix] 75 mg PO DAILY #30 tab 04/21/20 [Rx] RX: Metoprolol Tartrate [Lopressor] 25 mg PO BID #60 tab 04/21/20 [Rx] Follow up Appointment(s)/Referral(s): None,Stated [Primary Care Provider] - 1-2 days [facility] [NON-STAFF] - As Needed Weston Ventura MD [STAFF PHYSICIAN] - 1 Week Patient Instructions/Handouts: How to Stop Smoking (DC), Heart Healthy Diet (DC), Coronary Artery Disease (DC), Heart Attack (DC) Activity/Diet/Wound Care/Special Instructions: Activity: as tolerated Diet: heart healthy Special Instructions: no smoking Discharge Disposition: HOME SELF-CARE
--- NOTE | 2020-04-21 16:01 | ECHOF ---
Referral Reason:LVEF MEASUREMENTS -------- HEIGHT: 182.9 cm WEIGHT: 109.8 kg BP: FINDINGS -------- Echo done 04/20/20: Limited study for lv function. Overall left ventricular systolic function is low-normal with, an EF between 50 - 55 %. Basal infer ior LV wall motion is hypokinetic. There is no pericardial effusion. CONCLUSIONS -------- 1. Overall left ventricular systolic function is low-normal with, an EF between 50 - 55 %. 2. Basal inferior LV wall motion is hypokinetic. 3. There is no pericardial effusion. NUMBERER AND WIRER: Cecily Brewer RDCS
[2020-04-22] MEDS ORDERED: METOPROLOL TARTRATE 25 MG TAB ONE (09:23)
[2020-04-22] MEDS ORDERED: CLOPIDOGREL 75 MG TAB ONE (09:23)
[2020-04-22] MEDS ORDERED: DIGOXIN 250 MCG/ML 2 ML AMP ONE (09:23)
[2020-04-22] MEDS ORDERED: ASPIRIN 325 MG TAB ONE (09:23)
[2020-04-22] MEDS ORDERED: FUROSEMIDE 10 MG/ML 4 ML VIAL ONE (09:23)
--- NOTE | 2020-04-22 16:51 | CDI ---
Documentation Clarification Form Date: 04/22/20 From: Brittanie Rosas CCS Phone: If you have a question about this query, please contact Yumiko Kelley, Senior Software Developer at [phone] between 8am and 5pm. Admit Date: 04/19/20 Discharge Date:04/21/20 Patient Name: Joaquin Graf Visit Number: [id number] ATTENTION: The Clinical Documentation Specialists (CDI) and [facility] Coding Staff appreciate your assistance in clarifying documentation. Please respond to the clarification below the line at the bottom and electronically sign. The CDI & [facility] Coding staff will review the response and follow-up if needed. Please note: Queries are made part of the Legal Health Record. If you have any questions, please contact the author of this message via ITS. Dear Dr. Ventura, Conflicting documentation has been found in the medical record: Your consult documents: His EKG however shows evidence of Q waves in inferior leads with ST T changes suggestive of subacute inferior wall [place] DS documents: NSTEMI, sub acute inferior wall History/Risk Factors: CAD, Hyperlipidemia Clinical Indicators: Myocardial infarction Coronary Cath: Total occlusion of the proximal RCA PTCA: PTCA of a chronic total occlusion Treatment: Heparin 5,000, 4,000, 2,000 unit IV In your opinion, what is the most clinically appropriate diagnosis for this patient? NSTEMI STEMI inferior wall Other explanation of clinical findings Unable to determine (no explanation for clinical findings) Sub acute STEMI,inferior wall MTDD
[2020-04-23 07:50] VITALS: BP 103/69; PULSE 86; RESP 20; TEMP 97.9
== END 2020-04-21 17:20 | disposition home or self-care (01) | DRG 247 ==
LOC: EC 06:59 → 3SCARD 10:04 → 2SICU 13:44
PROVIDERS: ADMIT Family Medicine; ATTEND Family Medicine
PROC: 027034Z Dilation of Coronary Artery, One Artery with Drug-eluting Intraluminal Device, Percutaneous Approach (ICD-10-PCS; principal; 2020-04-19 09:40)
PROC: B2151ZZ Fluoroscopy of Left Heart using Low Osmolar Contrast (ICD-10-PCS; 2020-04-19 09:40)
PROC: 4A023N7 Measurement of Cardiac Sampling and Pressure, Left Heart, Percutaneous Approach (ICD-10-PCS; 2020-04-19 09:40)
DX: I21.19 ST elevation (STEMI) myocardial infarction involving other coronary artery of inferior wall (principal); I95.9 Hypotension, unspecified; Z11.59 Encounter for screening for other viral diseases; I25.10 Atherosclerotic heart disease of native coronary artery without angina pectoris; F17.200 Nicotine dependence, unspecified, uncomplicated; E78.5 Hyperlipidemia, unspecified; R74.0 Nonspecific elevation of levels of transaminase and lactic acid dehydrogenase [LDH]; R00.0 Tachycardia, unspecified; Z71.3 Dietary counseling and surveillance; Z71.6 Tobacco abuse counseling
CPT/HCPCS: 36415; 71045; 71046; 71275; 80053; 80061; 83735; 83880; 84484; 85025; 85347; 85379; 85610; 85730; 93005; 93306; 93308; 93458; 96365; 96368; 96375; 96376; 99291

== ENCOUNTER → 2021-05-12 | Outpatient (CLI) | payer OTHER ==
--- NOTE | 2021-05-12 16:52 | XR ---
EXAMINATION TYPE: XR Hip Bilateral Complete DATE OF EXAM: 05/12/2021 COMPARISON: NONE HISTORY: 60-year-old male with bilateral hip pain TECHNIQUE: 2 views each side FINDINGS: [id number] degenerative change of the right hip with mild superolateral joint space narrowing, subchondral sclerosis, and marginal spurring. Mild degenerative change of the left hip with marginal spurring and minimal superolateral joint space narrowing. No acute fracture, subluxation, or dislocat ion. IMPRESSION: [id number] right and mild left hip OA. No acute osseous abnormality seen.
== END | disposition home or self-care (01) ==
LOC: RADXRWHC 13:51
PROVIDERS: ATTEND Family Medicine
DX: M16.12 Unilateral primary osteoarthritis, left hip (principal)
CPT/HCPCS: 73521

== ENCOUNTER → 2021-06-17 | Outpatient (CLI) | payer OTHER ==
--- NOTE | 2021-06-17 10:14 | CT ---
EXAMINATION TYPE: CT angio abd aorta w/Runoff DATE OF EXAM: 06/17/2021 COMPARISON: None HISTORY: Rt sided iliac artery disease, Lt flank pain CT DLP: 2726.1 mGycm CONTRAST: CTA abdominal aorta with 3-D reconstruction is performed and without and with IV Contrast, patient in jected with 80 mL of Isovue 370. Contrast CTA of the abdominal aorta with runoff of the lower extremity arterial system was performed from the lung bases through the ankles and feet. 3-D reconstruction imaging obtained at a separate wo rkstation. ABDOMINAL AORTA: There is an infrarenal abdominal aortic aneurysm with mural thrombus measuring 3.6 c m. Celiac artery, SMA, NABIL and renal arteries are patent bilaterally. Iliac vessels: There is thrombus with occlusion of the right common iliac artery as well as the right external iliac artery. There is also occlusion of the right internal iliac artery which fills distal ly via collaterals. The left common iliac, external iliac and internal iliac arteries are all patent. Femoral arteries: The right femoral artery demonstrates filling via the right epigastric artery. Supe rficial femoral artery as well as the profunda femoris are all patent without hemodynamically signifi cant stenosis. Left femoral vessels are patent without significant stenosis or atheromatous change. Popliteal arteries: Popliteal arteries are patent bilaterally with only mild plaque formation noted. Below the knee arteries: Trifurcation is patent bilaterally. Peroneal, anterior and posterior tibial arteries demonstrate mild calcific disease without evidence for hemodynamically significant stenosis. Limited runoff of the ankles and feet given timing of the contrast bolus. LIVER/GB- No significant abnormality is seen. PANCREAS- No significant abnormality is seen. SPLEEN- No significant abnormality is seen. ADRENALS- No significant abnormality is seen. KIDNEYS/BLADDER-large left renal calculus noted measuring 2.3 x 1.8 cm resulting in left-sided hydron ephrosis and mild to moderate in degree and delayed excretion. Additional nonobstructing calculus low er pole left kidney. Right kidney is unremarkable. BOWEL- No Significant abnormality GENITAL ORGANS: No gross abnormality seen. LYMPH NODES- No greater than 1cm abdominal or pelvic lymph nodes are appreciated. OSSEOUS STRUCTURES- No significant abnormality is seen. OTHER- No significant abnormality is seen. IMPRESSION- 1. Occluded right common iliac artery as well as the right internal and external iliac arteries. Righ t femoral artery fills via the epigastric collaterals. 2. Infrarenal abdominal aortic aneurysm. 3. Large calculus left renal pelvis resulting in [id number] hydronephrosis and delayed excretio n.
== END | disposition home or self-care (01) ==
LOC: RADCTMAIN 07:42
PROVIDERS: ATTEND Family Medicine
DX: I74.5 Embolism and thrombosis of iliac artery (principal); I71.4 Abdominal aortic aneurysm, without rupture; N13.2 Hydronephrosis with renal and ureteral calculous obstruction
CPT/HCPCS: 82565; 84520; 75635; 36415; Q9967

== ENCOUNTER → 2021-07-14 | Outpatient (CLI) | payer OTHER ==
[2021-07-14 14:20] LABS: Basophils % (A) 1 %; Eosinophils # (A) 0.3 k/uL (0-0.7); Eosinophils % (A) 4 %; HCT 44.9 % (39.0-53.0); HGB 14.1 gm/dL (13.0-17.5); Lymphocytes # (A) 2.4 k/uL (1.0-4.8); Lymphocytes % (A) 34 %; MCH 30.9 pg (25.0-35.0); MCHC 31.4 g/dL (31.0-37.0); MCV 98.5 fL (80.0-100.0); Mean Platelet Volume 7.6; Monocytes # (A) 0.5 k/uL (0-1.0); Monocytes % (A) 7 %; Neutrophils # (A) 3.6 k/uL (1.3-7.7); Neutrophils % (A) 52 %; Platelet Count 163 k/uL (150-450); RBC 4.56 m/uL (4.30-5.90); RDW 13.3 % (11.5-15.5); WBC 6.9 k/uL (3.8-10.6)
[2021-07-14 14:27] LABS: Potassium 4.9 mmol/L (3.5-5.1)
== END | disposition home or self-care (01) ==
LOC: LABPAT 13:49
PROVIDERS: ATTEND Surgery
DX: Z01.812 Encounter for preprocedural laboratory examination (principal); I74.5 Embolism and thrombosis of iliac artery
CPT/HCPCS: 36415; 80051; 82565; 84520; 85025

== ENCOUNTER 2021-07-15 08:23 | Day surgery (SDC) | payer OTHER ==
[2021-07-13 10:54] VITALS: BMI 31.2
[~2021-07-15 08:23] MED LIST: LACTATED RINGERS 1,000 ML IV SCH; ONDANSETRON 4 MG/2 ML VIAL IVP ONE; SODIUM CHLORIDE 0.9% 1,000 ML in EMPTY BAG 1 BAG IV ONE; SODIUM CHLORIDE 0.9% 500 ML 500 ML IV ONE
[2021-07-15] MEDS ORDERED: SODIUM CHLORIDE 0.9% 1,000 ML IV ONE (08:40)
[2021-07-15 08:49] LABS: Glucose,Whole Blood 129 mg/dL (75-99)
--- NOTE | 2021-07-15 10:59 | P.ANPRN ---
Procedure Note - Anesthesia - Invasive Line Left Arterial Line Time Out Performed: Yes Date of Procedure: 07/15/21 Time of Procedure: 10:32 Location of Patient: EP Preparation: Sterile Prep, Sterile Dressing Arterial Line Location: Radial Ultrasound Used: Yes Purpose - Visualization and Identification of Vasculature: Yes Needle Guage: 20 Image Stored and Saved: Yes Narrative: R radial occluded. Left radial arterial line placed using Seldinger technique.
[2021-07-15] MEDS ORDERED: ROCURONIUM 10 MG/ML (5 ML VIAL) IV ONE (12:17)
[2021-07-15] MEDS ORDERED: MIDAZOLAM 2 MG/2 ML VIAL ONE (12:17)
[2021-07-15] MEDS ORDERED: PROPOFOL 10 MG/ML 20 ML VIAL IV ONE (12:17)
[2021-07-15] MEDS ORDERED: SUCCINYLCHOLINE CHLORIDE VIAL 200 MG/10 ML VIAL IV ONE (12:17)
[2021-07-15] MEDS ORDERED: PHENYLEPHRINE-0.9% NACL SYG 1,000 MCG/10 ML SYRINGE ONE (12:17)
[2021-07-15] MEDS ORDERED: ETOMIDATE 2 MG/ML 10 ML VIAL ONE (12:17)
[2021-07-15] MEDS ORDERED: HEPARIN SODIUM,PORCINE 10,000 UNIT/ML 1 ML VIAL ONE (12:17)
[2021-07-15] MEDS ORDERED: fentaNYL (PF) 50 MCG/ML 2 ML AMP ONE (12:17)
[2021-07-15] MEDS ORDERED: IV FLUID CONTINUATION 900 ML IV ONE (12:27)
[2021-07-15] MEDS ORDERED: LACTATED RINGERS 1,000 ML IV ONE ×2 (15:05→15:47)
[2021-07-15] MEDS ORDERED: IOPAMIDOL-250 100ML BTL INTRAARTER ONE (15:39)
[2021-07-15] MEDS ORDERED: IOPAMIDOL-250 50ML BTL INTRAARTER ONE (15:46)
[2021-07-15] MEDS ORDERED: HYDROcodone/APAP 5-325MG 1 EACH TAB PO PRN (16:37)
[2021-07-15] MEDS: HYDROmorphone 0.5 MG/0.5 ML SYRINGE IVP PRN ×2 (16:37→18:36)
--- NOTE | 2021-07-15 16:37 | P.OP ---
Description of Procedure: Date: 07/15/2021 Preoperative diagnosis: Right common iliac, external iliac artery occlusion, claudication Barton classification 3, infrarenal 3.6 cm AAA Postoperative diagnosis: Same Procedure: #1 ultrasound-guided bilateral common femoral artery access. #2 retrograde right iliofemoral angiogram #3 aortogram with bilateral iliofemoral angiograms #4 percutaneous transluminal balloon angioplasty of the right common iliac and external iliac artery #5 Percutaneous Endovascular aortic repair with AFX II device placement #6 percutaneous transluminal stenting of the right common iliac artery with 7 x 79 mm VBX covered stent #7 percutaneous transluminal stenting of the right external iliac artery with 7 x 80 mm ever Flex #8 percutaneous closure of bilateral common femoral arteries Surgeon: Joaquin Brumfield DO [employer] Operator: none Anesthesia: GETA EBL: 150 Complications: None Contrast: 150 mL Fluoroscopy time: 53 minutes Condition: Stable Disposition: Palpable DP pulse bilaterally Indication for procedure: 60-year-old gentleman presented to the office secondary to claudication in his right hip. He had diminished ABIs on the right less than 0.7. He was unable to ambulate farther than 50 feet due to hip and buttock claudication but denied any rest pain. He underwent CT angiogram of the abdomen and pelvis which demonstrated a 3.6 cm AAA as well as an occlusion of the right common iliac artery and external iliac artery with reconstitution at the distal external iliac artery. Upon evaluation and discussion it was determined to revascularize his right common iliac artery but due to the proximity of the bifurcation as well as his aneurysm it was determined to place an AFX graft across this lesion to fix both the aneurysm and occlusion. He understood and agreed with the plan. Operative Narrative: After written and informed consent was obtained the patient all risks benefits and complications were described the patient is brought to the Outdoor [employer] Professor and laid in the supine position. The area of the groins were prepped and draped in usual sterile fashion after appropriate anesthetic was performed per the anesthesiologist. A timeout was performed in normal fashion antibiotics were administered prior to accessed. Under ultrasound guidance bilateral common femoral arteries were accessed and utilizing Seldinger technique a 5-Nigerien sheath was placed in the bilateral femoral arteries.The patient was then administered heparin and followed with serial ACTs for appropriate heparinization. . Retrograde angiogram was then obtained of the right iliofemoral segment demonstrating occlusion of the external iliac artery. 035 Glidewire was then placed in the left femoral sheath followed by pigtail catheter and aortogram with iliofemoral angiogram was obtained demonstrating once again occlusion just after takeoff of the bifurcation with reconstitution at the distal external iliac artery on the right. A RBI catheter was then attempted to be utilized to access through the lesion from an antegrade approach which was unsuccessful. A 6.5-Nigerien Destino sheath was then decided to be used after 2 Perclose closure devices were placed in the left femoral artery. Utilizing the Destino sheath and a quick cross catheter attempts to cross the lesion from the top was performed as well as attempt at crossing the lesion from a retrograde aspect. After multiple wires and catheters the lesion was crossed from an antegrade aspect. Utilizing a snare catheter the wire was snared at the right common femoral artery and pulled externally in a body floss technique. Balloon angioplasty was then performed with a 5 x 120 mm balloon. Once completed and there was filling into the right femoral artery the quick cross catheter was taken in a retrograde fashion up to the bifurcation and the Destino sheath. Both sheath and catheter were moved into the aorta and the Up & Over wire was removed and an 035 Glidewire was placed into the lumen of the aorta from the right femoral sheath. This was confirmed with an angiogram demonstrating no evidence of dissection flap. Once completed attention was then placed to the aortic aneurysm and placement of the AFX2 device. 035 Glidewire was then placed through the 6.5-Nigerien sheath and replaced with a stiff Lunderquist wire through a comfy catheter. The 5-Nigerien sheath at the right common femoral artery was upsized to a 7-Nigerien sheath. 035 guidewire was then placed in the 7-Nigerien sheath followed by pigtail catheter above the renal arteries at approximately L1-L2 vertebra level. Guidewire was removed and aortogram was obtained. The 6.5-Nigerien sheath was then removed and 19-Nigerien AFX introducer sheath was guided over the stiff wire to the area above the bifurcation. A 25 x 100 mm AFX2 bifurcated device was then guided onto the stiff wire. The contralateral wire was then placed and through the 7-Nigerien sheath it was then snared and brought out to the contralateral 7-Nigerien sheath. The main body of the AFX was then advanced to above the bifurcation in normal fashion and deployed above the bifurcation ultimately then pulled down to the bifurcation. Once main body was deployed attention was then placed to the contralateral limb which was deployed by removing the yellow loop cover. A pigtail catheter was then placed over the wire and the contralateral wire was unlocked with the pigtail catheter. Pigtail catheter was then placed above the renal arteries. The ipsilateral limb was then obtained and the inner core and retracting AFX introducer sheath to deployed the ipsilateral limb. This inner deployment was removed and the obturator was placed and the sheath was then advanced through the above the renal arteries. A 28 x 95 mm suprarenal AFX Hsieh cuff was then deployed beneath the renal arteries once landing zone was visualized. Through the right common femoral sheath a 8 x 40 mm balloon was utilized to balloon open the common iliac portion of the AFX to stent. Angiogram were then obtained demonstrating brisk flow through the aorta and left iliac system with some flow distally in the right but through the area of occlus ion and dissection flap. Due to this balloon angioplasty and stenting was required of the common and external iliac artery. A 7 x 79 mm VBX balloon expandable stent was placed and the proximal aspect was balloon dilated with a 9 x 40 mm balloon. Final extension with a 7 x 80 mm ever Flex self-expanding stent was then performed into the external iliac artery. Final angiogram was obtained demonstrating good seal with no evidence of endoleak and brisk flow through bilateral iliac system with superficial femoral artery takeoff and profundus femoris filling noted. All guidewires and catheters were then removed and the Perclose closure device was utilized for hemostasis for the ipsilateral femoral artery. A Vascade was then placed through the 7-Nigerien sheath for hemostasis in normal fashion. Once hemostatic the areas were then cleansed and dressings were placed. The patient tolerated the procedure well and had palpable DP and PT pulses pulses at the conclusion of the procedure. He was then sent to PACU for recovery.
[2021-07-15] MEDS ORDERED: SODIUM CHLORIDE 0.9% 1,000 ML IV SCH (16:45)
[2021-07-15 18:34] VITALS: TEMP 97.6
[2021-07-15 19:19] LABS: Basophils % (A) 0 %; Eosinophils # (A) 0.1 k/uL (0-0.7); Eosinophils % (A) 2 %; HCT 41.1 % (39.0-53.0); HGB 13.2 gm/dL (13.0-17.5); Lymphocytes # (A) 1.7 k/uL (1.0-4.8); Lymphocytes % (A) 19 %; MCH 31.8 pg (25.0-35.0); MCHC 32.1 g/dL (31.0-37.0); Mean Platelet Volume 7.5; Monocytes # (A) 0.5 k/uL (0-1.0); Monocytes % (A) 6 %; Neutrophils # (A) 6.2 k/uL (1.3-7.7); Neutrophils % (A) 72 %; Platelet Count 129 k/uL (150-450); RBC 4.15 m/uL (4.30-5.90); RDW 13.4 % (11.5-15.5); WBC 8.6 k/uL (3.8-10.6)
[2021-07-15 19:36] LABS: African American GFR (CKD) >90 (>60 ml/min/1.73 sqM); Anion Gap 8 mmol/L; Blood Urea Nitrogen 17 mg/dL (9-20); Calcium 8.2 mg/dL (8.4-10.2); Carbon Dioxide 20 mmol/L (22-30); Chloride 109 mmol/L (98-107); Glucose 100 mg/dL (74-99); Non-African American GFR(CKD) >90 (>60 ml/min/1.73 sqM); Potassium 3.8 mmol/L (3.5-5.1); Sodium 137 mmol/L (137-145)
[2021-07-15 19:54] LABS: Glucose,Whole Blood 85 mg/dL (75-99)
[2021-07-15] MEDS ORDERED: hydrALAZINE HCL 20 MG/ML 1 ML VIAL IVP STA (20:03)
[2021-07-15] MEDS ORDERED: ARTIFICIAL TEARS-HYPROMELLOSE DROPS 15 ML BTL BOTH EYES PRN (20:03)
[2021-07-15] MEDS: METOPROLOL TARTRATE 25 MG TAB PO SCH (20:30)
[2021-07-15] MEDS ORDERED: ASPIRIN 81 MG PO SCH (21:00)
[2021-07-15] MEDS ORDERED: ATORVASTATIN 80 MG TAB PO SCH (21:00)
[2021-07-16 01:08] LABS: Glucose,Whole Blood 173 mg/dL (75-99)
[2021-07-16] MEDS: INSULIN ASPART (NovoLOG) 100 UNIT/ML VIAL SQ SCH ×2 (01:27→08:46)
[2021-07-16 05:23] LABS: Glucose,Whole Blood 128 mg/dL (75-99)
[2021-07-16 05:52] LABS: African American GFR (CKD) >90 (>60 ml/min/1.73 sqM); Non-African American GFR(CKD) >90 (>60 ml/min/1.73 sqM)
[2021-07-16] MEDS: METOPROLOL TARTRATE 25 MG TAB PO SCH (08:45)
[2021-07-16] MEDS ORDERED: CLOPIDOGREL 75 MG TAB PO SCH (09:00)
[2021-07-16] MEDS ORDERED: ASPIRIN 81 MG PO SCH (09:00)
[2021-07-16 10:26] VITALS: BP 121/60; PULSE 70; RESP 21
--- NOTE | 2021-07-16 11:25 | PN ---
PROGRESS NOTE This patient is a 60-year-old gentleman with a history of diabetes, peripheral vascular disease. The patient had a PTBA antegrade artery with UR by Dr. Joaquin Brumfield. On examination, his vital signs are stable. Groin incision is clean and pulses are present. Plan is for patient going home today. Continue with home medication. Office on Sunday. MMODL / IJN: [id number] /
--- NOTE | 2021-07-16 15:05 | P.CONS ---
History of Present Illness - Reason for Consult Type 2 diabetes mellitus - History of Present Illness Patient is a pleasant 60-year-old male is admitted the for elective angiogram and stenting of right common iliac and external iliac arteries for occlusion of the same with the significant claudication symptoms. Patient the was seen postoperatively clinically doing well blood pressure is within normal limits patient pain is well controlled. Patient does have history of diabetes mellitus blood sugars appear to be well controlled on metformin. REVIEW OF SYSTEMS: CONSTITUTIONAL: No fever, no malaise, no fatigue. HEENT: No recent visual problems or hearing problems. Denied any sore throat. CARDIOVASCULAR: No chest pain, orthopnea, PND, no palpitations, no syncope. PULMONARY: No shortness of breath, no cough, no hemoptysis. GASTROINTESTINAL: No diarrhea, no nausea, no vomiting, no abdominal pain. NEUROLOGICAL: No headaches, no weakness, no numbness. HEMATOLOGICAL: Denies any bleeding or petechiae. GENITOURINARY: Denies any burning micturition, frequency, or urgency. MUSCULOSKELETAL/RHEUMATOLOGICAL: Denies any joint pain, swelling, or any muscle pain. ENDOCRINE: Denies any polyuria or polydipsia. The rest of the 14-point review of systems is negative. PHYSICAL EXAMINATION: GENERAL: The patient is alert and oriented x3, not in any acute distress. Well developed, well nourished. HEENT: Pupils are round and equally reacting to light. EOMI. No scleral icterus. No conjunctival pallor. Normocephalic, atraumatic. No pharyngeal erythema. No thyromegaly. CARDIOVASCULAR: S1 and S2 present. No murmurs, rubs, or gallops. PULMONARY: Chest is clear to auscultation, no wheezing or crackles. ABDOMEN: Soft, nontender, nondistended, normoactive bowel sounds. No palpable organomegaly. MUSCULOSKELETAL: No joint swelling or deformity. EXTREMITIES: No cyanosis, clubbing, or pedal edema. NEUROLOGICAL: Gross neurological examination did not reveal any focal deficits. SKIN: Postsurgical packing Assessment and plan -Peripheral acid disease with a significant claudication symptoms status post stenting of common iliac and external iliac on the right side. Patient will continue on Plavix and aspirin -Type 2 diabetes mellitus -Hyperlipidemia coronary artery disease For above-mentioned chronic medical problems patient will be resumed and continued on home medications except for metformin patient will hold his metformin today since he received angiogram. Patient can be discharged from medical perspective if cleared from vascular surgery. Past Medical History Past Medical History: Diabetes Mellitus, Hyperlipidemia, Hypertension, Myocardial Infarction (VT), Vascular Disorder Additional Past Medical History / Comment(s): 2 kidney stones Last Myocardial Infarction Date:: 04/17/20 History of Any Multi-Drug Resistant Organisms: None Reported Past Surgical History: Heart Catheterization With Stent Additional Past Surgical History / Comment(s): reconstruction surgery cheek Past Anesthesia/Blood Transfusion Reactions: No Reported Reaction Additional Past Anesthesia/Blood Transfusion Reaction / Comm: pt adopted Date of Last Stent Placement:: 04/19/20 Past Psychological History: No Psychological Hx Reported Smoking Status: Former smoker Past Alcohol Use History: Occasional Past Drug Use History: Marijuana - Past Family History Mother History Unknown: Yes Father History Unknown: Yes Medications and Allergies Home Medications Medication Instructions Recorded Confirmed Type Aspirin 81 mg PO HS #30 tab 04/21/20 07/15/21 Rx Atorvastatin [Lipitor] 80 mg PO HS #30 tab 04/21/20 07/15/21 Rx Clopidogrel [Plavix] 75 mg PO DAILY #30 tab 04/21/20 07/15/21 Rx Metoprolol Tartrate [Lopressor] 25 mg PO BID #60 tab 04/21/20 07/15/21 Rx metFORMIN HCL [Glucophage] 500 mg PO BID 07/13/21 07/15/21 History Allergies Allergy/AdvReac Type Severity Reaction Status Date / Time No Known Allergies Allergy Verified 07/13/21 10:44 Physical Exam Vitals: Vital Signs Temp Pulse Pulse Resp BP BP Pulse Ox 07/16/21 10:00 70 21 121/60 95 07/16/21 09:00 74 26 H 121/60 94 L 07/16/21 08:00 98 22 94 L 07/16/21 07:00 77 13 93 L 07/16/21 06:00 81 15 94 L 07/16/21 05:00 86 17 94 L 07/16/21 04:00 61 17 94 L 07/16/21 03:00 79 20 100/53 93 L 07/16/21 02:00 75 22 91 L 07/16/21 01:00 96 16 92 L 07/16/21 00:00 86 18 92/46 92 L 07/15/21 23:00 75 17 139/95 93 L 07/15/21 22:00 85 18 132/89 95 07/15/21 21:00 97 15 160/95 98 07/15/21 20:00 86 12 165/100 97 07/15/21 19:00 75 8 L 97 07/15/21 18:45 76 7 L 96 07/15/21 18:30 70 9 L 177/92 94 L 07/15/21 18:20 61 17 94 L 07/15/21 18:10 58 L 8 L 177/92 95 07/15/21 18:00 59 L 8 L 94 L 07/15/21 17:50 70 9 L 155/86 93 L 07/15/21 17:40 61 12 94 L 07/15/21 17:38 97.6 F 59 L 8 L 94 L 07/15/21 17:01 51 L 18 161/86 92 L 07/15/21 16:46 52 L 18 156/82 93 L 07/15/21 16:31 50 L 18 156/77 07/15/21 16:16 54 L 16 159/82 100 07/15/21 16:05 96.8 F L 54 L 153/77 100 Intake and Output 07/16/21 07/16/21 07/16/21 06:59 14:59 22:59 Intake Total 160 800 Output Total 810 950 Balance -650 -150 Intake: IV 160 Sodium Chloride 0.9% 1, 160 000 ml @ 80 mls/hr IV . [id number] [facility] Rx#:[id number] Oral 800 Output: Urine 810 950 Other: Voiding Method Indwelling Catheter Indwelling Catheter # Voids 1 ABP, PAP, CO, CI - Last 8 Hours Arterial Blood Pressure 118/53 Arterial Blood Pressure 107/47 Arterial Blood Pressure 183/170 Results CBC & Chem 7: 07/15/21 19:05 07/16/21 05:20 Labs: Abnormal Lab Results - Last 24 Hours (Table) 07/15/21 07/15/21 07/16/21 Range/Units 19:05 19:05 01:06 RBC 4.15 L (4.30-5.90) m/uL Plt Count 129 L (150-450) k/uL Chloride 109 H (98-107) mmol/L Carbon Dioxide 20 L (22-30) mmol/L Glucose 100 H (74-99) mg/dL POC Glucose (mg/dL) 173 H (75-99) mg/dL Calcium 8.2 L (8.4-10.2) mg/dL 07/16/21 Range/Units 05:21 RBC (4.30-5.90) m/uL Plt Count (150-450) k/uL Chloride (98-107) mmol/L Carbon Dioxide (22-30) mmol/L Glucose (74-99) mg/dL POC Glucose (mg/dL) 128 H (75-99) mg/dL Calcium (8.4-10.2) mg/dL
--- NOTE | 2021-07-18 09:40 | IR ---
Fluoroscopy HISTORY: Peripheral vascular occlusive disease 52.7 minutes fluoroscopy time supplied to the referring clinician. 363 intraoperative C-arm images d ocument the procedure. See dictated report from vascular surgery.
== END 2021-07-16 11:08 | disposition home or self-care (01) ==
LOC: CATHCVL 08:23 → 2SICU 16:05 → CATHCVL 07-16 11:08
PROVIDERS: ATTEND Surgery
DX: I71.4 Abdominal aortic aneurysm, without rupture (principal); I73.9 Peripheral vascular disease, unspecified; I74.5 Embolism and thrombosis of iliac artery; E11.51 Type 2 diabetes mellitus with diabetic peripheral angiopathy without gangrene; E78.5 Hyperlipidemia, unspecified; I10 Essential (primary) hypertension; I25.10 Atherosclerotic heart disease of native coronary artery without angina pectoris; I25.2 Old myocardial infarction; Z79.02 Long term (current) use of antithrombotics/antiplatelets; Z79.82 Long term (current) use of aspirin; Z79.84 Long term (current) use of oral hypoglycemic drugs; Z87.442 Personal history of urinary calculi; Z87.891 Personal history of nicotine dependence; E11.9 Type 2 diabetes mellitus without complications; Z79.899 Other long term (current) drug therapy
CPT/HCPCS: 37221; 86900; 86901; 80048; 82565; 85025; 86850; 87635; C1894 ×4; C1773; C1769 ×7; C1725 ×2; C1887; C1876; C1760 ×2; C1874; J2250; J0330; J0360; J1644; J0690; J3010; J2370; J2704; J1170; Q9966 ×2

== ENCOUNTER → 2022-04-22 | Outpatient (CLI) | payer OTHER ==
--- NOTE | 2022-04-22 08:43 | CT ---
EXAMINATION TYPE: CT abdomen pelvis wo con DATE OF EXAM: 04/22/2022 HISTORY: Calculus of kidney. Flank pain for several months. CT DLP: 1248.5 mGycm. Automated Exposure Control for Dose Reduction was Utilized. TECHNIQUE: CT scan of the abdomen and pelvis is performed without oral or IV contrast. COMPARISON: CTA aorta June 17, 2021 FINDINGS: Within the limitations of a non-contrast study, the following observations are made. LUNG BASES: Mild lingular linear scarring and/or atelectasis. LIVER/GB: The liver heterogeneously hypodense consistent with diffuse. Fatty infiltration. Stable sim ple appearing 1.7 cm thin-walled cyst posterior left hepatic dome axial image 12. PANCREAS: No significant abnormality is seen. SPLEEN: No significant abnormality is seen. ADRENALS: No significant abnormality is seen. KIDNEYS: No right-sided nephrolithiasis. Stable vascular calcification coronal image 67. Persistent l eft-sided nephrolithiasis. Current study shows dominant 2.4 cm elongated calculus lower pole calyx ex tending into pelvis coronal image 73. Smaller central vascular calcifications are present. There is a dditional second 8 mm mid pole calyceal calculus coronal image 78 on current study. No hydroureter or obstructing ureter calculi on current exam. No intraluminal calculi in the bladder. BOWEL: Incidental normal-appearing appendix. GENITAL ORGANS: Persistent mildly enlarged prostate gland. LYMPH NODES: No greater than 1cm abdominal or pelvic lymph nodes are appreciated. OSSEOUS STRUCTURES: No significant abnormality is seen. OTHER: Persistent aorto biiliac stent graft. Stable small fat-containing right inguinal hernia. IMPRESSION: There are 2 left-sided renal calculi on current study that are new or enlarged from prior study. No hydronephrosis or obstructing ureter calculi currently.
== END | disposition home or self-care (01) ==
LOC: RADCTMAIN 07:51
PROVIDERS: ATTEND Urology
DX: N20.0 Calculus of kidney (principal)
CPT/HCPCS: 74176

== ENCOUNTER → 2024-01-18 | Outpatient (CLI) | payer OTHER ==
--- NOTE | 2024-01-18 15:09 | CTL ---
EXAMINATION TYPE: CT Low Dose Lung DATE OF EXAM ORDERED: 01/18/2024 HISTORY:. Lung cancer screening CT DLP: [address] CTDI: 2.91 mGy Automated exposure control for dose reduction was used. COMPARISON: None TECHNIQUE: Low dose computed tomography scan was performed through the chest at 1 mm thick sections a nd reconstructed images in multiple planes at 1 mm and [address] DIAGNOSTIC QUALITY: Satisfactory FINDINGS: There 2 to 3 small sub-4 mm pulmonary nodules. There are no suspicious lung masses or nodules. There is no abnormal airspace/consolidative density or abnormal interstitial density. There is no pleural effusion, pleural thickening or pneumothorax. Great vessels the chest are normal and there is no mediastinal, hilar or axillary adenopathy. There are no suspicious focal osseous lesions. Limited scans through the upper abdomen reveals the superior aspect of an aortic stent but no other a bnormalities. IMPRESSION: 1. Lung metastases category 2 benign. Continue routine screening yearly intervals. 2. No acute cardiopulmonary disease.
== END | disposition home or self-care (01) ==
LOC: RADCTMAIN 14:04
PROVIDERS: ATTEND Family Medicine
DX: Z12.2 Encounter for screening for malignant neoplasm of respiratory organs (principal); C78.00 Secondary malignant neoplasm of unspecified lung; C80.1 Malignant (primary) neoplasm, unspecified; Z87.891 Personal history of nicotine dependence
CPT/HCPCS: 71271

== ENCOUNTER → 2024-03-24 | Outpatient (CLI) | payer OTHER ==
[2024-03-24 15:59] LABS: African American GFR (CKD) 64 (>60 ml/min/1.73 sqM); Blood Urea Nitrogen 34 mg/dL (9-20); Non-African American GFR(CKD) 55 (>60 ml/min/1.73 sqM)
--- NOTE | 2024-03-25 18:58 | CT ---
CTA abdomen, pelvis and runoff COMPARISON: 06/17/2021. HISTORY: Leg and hip pain. TECHNIQUE: Multiple axial images were obtained through the chest abdomen and pelvis before and after the uneventful menstruation nonionic contrast material. Due to poor cardiac output and renal disease exam is limited due to suboptimal opacification of the a bdominal, pelvic and lower extremity arteries. FINDINGS: Inflow CTA: There is interval placement of aortobiiliac stent graft for previously described aneurysm. Evaluation for leak is limited but no definite aneurysm leak is identified. There has been interval placement o f an endovascular stent of the right common and external iliac arteries. This did not appear to be a stenosis within the stent. The left common and external iliac arteries are patent without significant stenosis.. Outflow CTA: On the right, the common femoral artery, superficial femoral artery and popliteal artery are patent w ithout significant stenosis. There are scattered calcified plaques. On the left, the common femoral, superficial femoral and popliteal arteries are patent without signif icant stenosis. Runoff CTA: There is three-vessel runoff bilaterally. The dominant runoff vessel is the posterior tibial artery bilaterally. Nonvascular findings: The lung bases are clear. The gallbladder is unremarkable. There is no organomegaly. The liver, pancreas, spleen and adrenal glands. There is a persistent 7 mm hypodensity in the left lobe liver consistent with a stable simple cyst. There is a 2 mm nonobstructing calcification in the right kidney. There is chronic left renal atrophy and chronic hydronephrosis secondary to a 9.5 mm calculus in the proximal left ureter. There are 2-3 additional small 1 to 2 mm calcifications within the left renal c ollecting system. There is no solid renal mass. Bowel loops are normal in caliber and there is no dilatation or obstruction. No inflammatory changes identified in the mesentery or bowel wall There is no free intraperitoneal air or fluid. There is no pelvic mass, free fluid, abscess or adenopathy no focal osseous lesions are seen. IMPRESSION: 1. Moderate to marked left hydronephrosis secondary to a 10 mm calcification in the proximal left ure ter. Moderate to marked left renal atrophy. 2. Unremarkable aorto biiliac stent graft. 3. Unremarkable right common and external iliac artery stents. 4. No significant inflow, outflow or runoff stenoses.
== END | disposition home or self-care (01) ==
LOC: RADCTMAIN 15:15
PROVIDERS: ATTEND Surgery
DX: N13.2 Hydronephrosis with renal and ureteral calculous obstruction (principal); I71.40 Abdominal aortic aneurysm, without rupture, unspecified
CPT/HCPCS: 82565; 84520; 75635; 36415; Q9967

== ENCOUNTER 2024-05-16 08:29 | Day surgery (SDC) | payer OTHER ==
[~2024-05-16 08:29] MED LIST changes: +ALPRAZolam 0.25 MG TAB PO PRN; +EMPTY BAG 1 BAG with SODIUM CHLORIDE 0.9% 1,000 ML IV SCH; -LACTATED RINGERS 1,000 ML IV SCH; -ONDANSETRON 4 MG/2 ML VIAL IVP ONE; -SODIUM CHLORIDE 0.9% 1,000 ML in EMPTY BAG 1 BAG IV ONE; -SODIUM CHLORIDE 0.9% 500 ML 500 ML IV ONE
[2024-05-16 09:00] VITALS: TEMP 97.8
[2024-05-16] MEDS: SODIUM CHLORIDE 0.9% 1,000 ML IV ONE (09:00)
[2024-05-16 09:02] LABS: Glucose,Whole Blood 136 mg/dL (70-110)
[2024-05-16 09:08] LABS: Basophils # (A) 0.1 k/uL (0-0.2); Basophils % (A) 1 %; Eosinophils # (A) 0.3 k/uL (0-0.7); Eosinophils % (A) 4 %; HCT 46.7 % (39.0-53.0); Hypochromasia Slight; Lymphocytes # (A) 2.8 k/uL (1.0-4.8); Lymphocytes % (A) 33 %; MCH 32.1 pg (25.0-35.0); MCHC 32.1 g/dL (31.0-37.0); Macrocytosis Slight; Mean Platelet Volume 8.2; Monocytes # (A) 0.6 k/uL (0-1.0); Monocytes % (A) 7 %; Neutrophils # (A) 4.5 k/uL (1.3-7.7); Neutrophils % (A) 54 %; Platelet Count 181 k/uL (150-450); RBC 4.67 m/uL (4.30-5.90); RDW 14.5 % (11.5-15.5); WBC 8.4 k/uL (3.8-10.6)
[2024-05-16 09:26] LABS: African American GFR (CKD) 71 (>60 ml/min/1.73 sqM); Anion Gap 11 mmol/L; Blood Urea Nitrogen 33 mg/dL (9-20); Calcium 9.1 mg/dL (8.4-10.2); Carbon Dioxide 19 mmol/L (22-30); Chloride 113 mmol/L (98-107); Glucose 151 mg/dL (74-99); Non-African American GFR(CKD) 61 (>60 ml/min/1.73 sqM); Sodium 143 mmol/L (137-145)
[2024-05-16 09:34] LABS: Potassium 4.7 mmol/L (3.5-5.1)
[2024-05-16] MEDS: MIDAZOLAM 2 MG/2 ML VIAL IVP ONE (11:24)
[2024-05-16] MEDS: LIDOCAINE 1% INJ 10MG/ML (20 ML MDV) SQ ONE (11:31)
[2024-05-16] MEDS: HEPARIN SODIUM 1,000 UN/ML (10ML VL) IVP ONE (11:35)
[2024-05-16] MEDS: VERAPAMIL SYRINGE (5 MG/10 ML) INTRAARTER ONE (11:35)
[2024-05-16] MEDS: NITROGLYCERIN 1000MCG/10ML SYRINGE INTRAARTER ONE (11:35)
[2024-05-16] MEDS: IOPAMIDOL-370 200ML BTL INJ ONE (11:49)
--- NOTE | 2024-05-16 13:12 | P.OP ---
Date of Procedure: 05/16/24 Preoperative Diagnosis: Claudication, Rest pain Aortic occlusion Postoperative Diagnosis: Same Procedure(s) Performed: Aortogram with runoff via left radial artery ultrasound guided access Anesthesia: local Surgeon: Joaquin Brumfield Estimated Blood Loss (ml): 5 Pathology: none sent Condition: stable Disposition: PACU Indications for Procedure: 63 year old gentleman with history of AAA and previous EVAR presents to the hospital due to occlusion of the aortic graft and attempt at revascularization, thrombolysis. He has not been able to ambulate for several months and previous Doppler demonstrated significant decrease. CTA demonstrated occlusion with reconstitution at the femoral arteries bilaterally. Operative Findings: complete occlusion of the aortic graft and common iliac and external iliac arteries. Slow refill of the common femoral bilaterally Description of Procedure: Operative narrative: After written informed consent was obtained the patient all risks benefits competitions were described the patient is brought to the Conference [employer] Event [employer] and laid in a supine position. The area of the left wrist was prepped and draped in the usual sterile fashion. Local anesthesia with moderate sedation was performed with continuous pulse ox monitoring and EKG monitoring. Utilizing ultrasound the left radial artery was visualized and shown to be patent without any significant plaque. Utilizing a multipurpose needle under ultrasound guidance the artery was accessed. Guidewire was placed followed by 5-Citizen Of [place] sheath. 035 Glidewire was then placed into the aorta followed by pigtail catheter. Angiogram was then obtained of the aorta. Catheter was then placed at the bifurcation and femoral artery runoffs were obtained. Once completed all guidewires, catheters and sheaths were removed and pressure was placed for hemo stasis. Patient tolerated procedure well was sent to PACU for recovery. Patient will require axillobifemoral bypass in the future.
[2024-05-16 15:04] VITALS: RESP 16
[2024-05-16 15:33] VITALS: BP 122/56; PULSE 61
== END 2024-05-16 15:50 | disposition home or self-care (01) ==
LOC: CATHCVL 08:29
PROVIDERS: ATTEND Surgery
DX: T82.868A Thrombosis due to vascular prosthetic devices, implants and grafts, initial encounter (principal); I74.5 Embolism and thrombosis of iliac artery; I70.222 Atherosclerosis of native arteries of extremities with rest pain, left leg
CPT/HCPCS: 36221; 80048; 85025; J2250; J2001; J1644; Q9967; J2305